=== PATIENT | male | born 1940 | race Caucasian/White ===

== ENCOUNTER → 2020-11-09 10:35 | Outpatient (BNVA) | payer MEDICARE, SELFPAY | PROVIDERS: PCP Internal Medicine; Visit Provider Urology | CPT/HCPCS: Q3014 ==

== ENCOUNTER 2022-02-05 15:06 | Outpatient (AMB) | payer MEDICARE, SELFPAY ==
--- NOTE | 2022-02-05 15:36 | MHC.OFFVIS ---
Intake Intake Visit Reasons: 1 year PSA (set) Allergies No Known Allergies Allergy (Verified 11/09/20 10:36) HPI HPI Comments History of Present Illness Details Abel HUYNH is a very pleasant male. He is a patient of Dr. Hardy. He is seen today for the following urologic conditions - lower urinary tract symptoms - elevated PSA PVR 0 Mild PSA elevation Twelve month follow-up Lower Urinary Tract Symptoms:? - nocturia 2-3x ? Current visit is for?further evaluation of, lower urinary tract symptoms, predominate obstructive symptoms.? Prior treatments include?procedure TURP 2003 ?01/18 RA.? Prostate Symptom Score?01/17 , Mild (0-8), , Bother 2.? Symptoms include?01/17 , weak stream, straining, nocturia (>2), and are progressing.? Results from testing include? cystoscopy ? 09/17 recurrent left lateral regrowth ? PSA?07/18 4.5, 09/18 2.9, 09/19 3.7, 01/21 5.1 ? Testing at next visit will include?bladder scan [facility] Medical History (Updated 11/09/20 @ 11:00 by Genaro Mike MD) Benign prostatic hyperplasia with lower urinary tract symptoms Cancer of skin of leg Nocturia Straining to void Weak urinary stream Surgical History (Updated 11/09/20 @ 10:40 by LISA Pagan) History of surgery Social History (Updated 11/09/20 @ 10:40 by LISA Pagan) Patient Tobacco Use Status: Never used Tobacco Review of Systems Const Denies chills and Denies fever(s) Card Reports no additional complaints and Denies syncope Resp Denies cough GI Denies abdominal pain and Denies heartburn Reports as per HPI and Denies change in libido Neuro Denies syncope Psych Denies change in libido Endo Denies change in libido Physical Exam Const General: cooperative, healthy appearing, comfortable and no acute distress Orientation/consciousness: patient oriented x3 HEENT Face and sinus: Yes normal facial exam Mouth: moist mucous membranes Neck Neck: Yes normal visual inspection, Yes full ROM and Yes trachea midline Chest Chest palpation & inspection: normal inspection of the chest Resp Effort & Inspection: normal respiratory effort, able to speak in complete sentences and no respiratory distress GI Inspection: Yes normal to inspection Rectal Exam - Male: Yes normal sphincter tone and Yes prostate normal Male General Exam: Yes normal external exam Penis: normal penis and circumcised Meatus: meatus normal Scrotum: scrotum normal Testes: Testes normal Back/Spine/Pelvis Cervical Spine: normal cervical lordosis Thoracic/Lumbar Spine: thoracic and lumbar spine normal to inspection Skin General skin exam: no rashes or lesions noted Neuro General: patient oriented x3, gait normal, tone normal and moves all extremities Extrem General: Yes normal to inspection and Yes capillary refill normal Office Procedures Post Void Residual Post Residual Void Post Void Residual (PVR): 0 14715-Kgft Void Residual by ultrasound Results AMB Urinalysis, Automated UA Leukoctes 0 Vielka/uL Last Edit by Luzmaria Lynn RN on 02/05/22 15:44 UA Nitrite Negative Last Edit by Luzmaria Lynn RN on 02/05/22 15:44 UA Urobilinogen 0.2 mg/dL Last Edit by Luzmaria Lynn RN on 02/05/22 15:44 UA Protein 0 mg/dL Last Edit by Luzmaria Lynn RN on 02/05/22 15:44 UA pH 6.0 Last Edit by Luzmaria Lynn RN on 02/05/22 15:44 UA Blood 10 Daron/uL Last Edit by Luzmaria Lynn RN on 02/05/22 15:44 UA Specific Valencia 1.025 Last Edit by Luzmaria Lynn RN on 02/05/22 15:44 UA Ketone Negative Last Edit by Luzmaria Lynn RN on 02/05/22 15:44 UA Bilirubin 0 mg/dL Last Edit by Luzmaria Lynn RN on 02/05/22 15:44 UA Glucose 0 mg/dL Last Edit by Luzmaria Lynn RN on 02/05/22 15:44 Results Reviewed Results Reviewed: Laboratory Last Values Urine pH (Auto) 6.0 02/05/22 15:35 Specific Valencia (Auto) 1.025 02/05/22 15:35 Urine Protein (Auto) 0 mg/dL 02/05/22 15:35 Glucose (UA)(Auto) 0 mg/dL 02/05/22 15:35 Urine Ketones (Auto) Negative 02/05/22 15:35 Urine Blood (Auto) 10 Daron/uL 02/05/22 15:35 Urine Nitrite (Auto) Negative 02/05/22 15:35 Urine Bilirubin (Auto) 0 mg/dL 02/05/22 15:35 Urine Urobilinogen (Auto) 0.2 mg/dL 02/05/22 15:35 Leukocyte Esterase (Auto) 0 Vielka/uL 02/05/22 15:35 Assessment & Plan Assessment & Plan (1) Weak urinary stream: Code(s): R39.12 - Poor urinary stream (2) Nocturia: Code(s): R35.1 - Nocturia (3) Benign prostatic hyperplasia with lower urinary tract symptoms: Code(s): N40.1 - Benign prostatic hyperplasia with lower urinary tract symptoms Plan 12 month follow-up PSA Orders: Orders Prostate Specific Antigen 12 Months N40.1 - Benign prostatic hyperplasia with lower urinary tract symptoms AMB Urinalysis Automated 02/05/22 Z13.9 - Encounter for screening, unspecified AMB Post Void Residual by ultrasound 02/05/22 N40.1 - Benign prostatic hyperplasia with lower urinary tract symptoms Patient Instructions: Imaging studies, laboratory and physical exam results were discussed and reviewed in detail. No major barriers to patient understanding were identified. An opportunity to ask questions regarding the treatment plan was provided. All questions were answered. The patient expressed understanding and agreement with the above treatment plan. The patient is aware they should contact our office by phone for worsening of their current condition or the appearance of new urologic symptoms. Compliance is encouraged with any medications and followup testing that is ordered. It is a privilege to participate in the urologic care of your patient. If you have any questions or concerns regarding treatment for the above conditions, or other urologic issues, please do not hesitate to contact me. The office telephone contact is [phone]. This note is constructed using voice recognition software. While every effort has been made to ensure accuracy cafeteria associate errors may have been included. Yours sincerely, Dr Genaro Mike MD, JUAN M [facility] - Urology Providers of Expert, Compassionate Care for the Genitourinary System Coding Level of Care Code Est Pt Level 4 (73380) Diagnoses Weak urinary stream R39.12 Nocturia R35.1 Benign prostatic hyperplasia with lower urinary tract symptoms N40.1 CPT Codes Post Residual Void - PVR CPT Code: 44713-Dzep Void Residual by ultrasound ([id number])
== END 2022-02-05 16:24 | disposition home or self-care (01) ==
LOC: HO.HUSH 15:06
PROVIDERS: PCP Internal Medicine; Visit Provider Urology
DX: N40.1 Benign prostatic hyperplasia with lower urinary tract symptoms (principal); R39.12 Poor urinary stream; R35.1 Nocturia
CPT/HCPCS: 99214

== ENCOUNTER → 2022-02-05 15:06 | Outpatient (BNVA) | payer MEDICARE, SELFPAY | PROVIDERS: PCP Internal Medicine; Visit Provider Urology | DX: N40.1 Benign prostatic hyperplasia with lower urinary tract symptoms (principal); R35.1 Nocturia; R39.12 Poor urinary stream | CPT/HCPCS: 51798; 99212 ==

== ENCOUNTER 2023-03-20 14:33 | Outpatient (AMB) | payer MEDICARE, SELFPAY ==
--- NOTE | 2023-03-20 14:33 | MHC.OFFVIS ---
Intake Intake Visit Reasons: 1yr follow up/PSA Intake Note: Patient is Present for Follow Up PSA Urology Medication: None Antibiotic Allergies: None Blood Thinners:none Allergies No Known Allergies Allergy (Verified 03/20/23 14:45) HPI HPI Comments History of Present Illness Details Abel HUYNH is a very pleasant male. He is a patient of Dr. Hardy. He is seen today for the following urologic conditions - lower urinary tract symptoms - elevated PSA PVR 0 Mild PSA elevation Staying in range for 84-year-old Mild bladder instability Minimal nocturia but has urgency and frequency Given age will try tadalafil for bladder stabilization Lower Urinary Tract Symptoms:? - nocturia 2-3x ? Current visit is for?further evaluation of, lower urinary tract symptoms, predominate obstructive symptoms.? Prior treatments include?procedure TURP 2003 ?01/18 RA.? Prostate Symptom Score?01/17 , Mild (0-8), , Bother 2.? Symptoms include?01/17 , weak stream, straining, nocturia (>2), and are progressing.? Results from testing include? cystoscopy ? 09/17 recurrent left lateral regrowth ? PSA?07/18 4.5, 09/18 2.9, 09/19 3.7, 01/21 5.1, 02/21 4.8 ? Testing at next visit will include?bladder scan [facility] Medical History (Updated 11/09/20 @ 11:00 by Genaro Mike MD) Cancer of skin of leg Nocturia Weak urinary stream Benign prostatic hyperplasia with lower urinary tract symptoms Straining to void Surgical History (Updated 11/09/20 @ 10:40 by LISA Pagan) History of surgery Social History (Updated 11/09/20 @ 10:40 by LISA Pagan) Patient Tobacco Use Status: Never used Tobacco Review of Systems Const Denies chills and Denies fever(s) Card Reports no additional complaints and Denies syncope Resp Denies cough GI Denies abdominal pain and Denies heartburn Reports as per HPI and Denies change in libido Neuro Denies syncope Psych Denies change in libido Endo Denies change in libido Physical Exam Const General: cooperative, healthy appearing, comfortable and no acute distress Orientation/consciousness: patient oriented x3 HEENT Face and sinus: Yes normal facial exam Mouth: moist mucous membranes Neck Neck: Yes normal visual inspection, Yes full ROM and Yes trachea midline Chest Chest palpation & inspection: normal inspection of the chest Resp Effort & Inspection: normal respiratory effort, able to speak in complete sentences and no respiratory distress GI Inspection: Yes normal to inspection Back/Spine/Pelvis Cervical Spine: normal cervical lordosis Thoracic/Lumbar Spine: thoracic and lumbar spine normal to inspection Skin General skin exam: no rashes or lesions noted Neuro General: patient oriented x3, gait normal, tone normal and moves all extremities Extrem General: Yes normal to inspection and Yes capillary refill normal Assessment & Plan Assessment & Plan (1) Nocturia: Code(s): R35.1 - Nocturia (2) Benign prostatic hyperplasia with lower urinary tract symptoms: Code(s): N40.1 - Benign prostatic hyperplasia with lower urinary tract symptoms Plan Three-month follow-up tele Medications: New tadalafil 5 mg PO DAILY 90 tabs 0RF sexual activity 90 days N40.1 - Benign prostatic hyperplasia with lower urinary tract symptoms Patient Instructions: Imaging studies, laboratory and physical exam results were discussed and reviewed in detail. No major barriers to patient understanding were identified. An opportunity to ask questions regarding the treatment plan was provided. All questions were answered. The patient expressed understanding and agreement with the above treatment plan. The patient is aware they should contact our office by phone for worsening of their current condition or the appearance of new urologic symptoms. Compliance is encouraged with any medications and followup testing that is ordered. It is a privilege to participate in the urologic care of your patient. If you have any questions or concerns regarding treatment for the above conditions, or other urologic issues, please do not hesitate to contact me. The office telephone contact is [phone]. This note is constructed using voice recognition software. While every effort has been made to ensure accuracy last ironer errors may have been included. Yours sincerely, Dr Genaro Mike MD, JUAN M [facility] - Urology Providers of Expert, Compassionate Care for the Genitourinary System Coding Level of Care Code Est Pt Level 4 (13704) Diagnoses Nocturia R35.1 Benign prostatic hyperplasia with lower urinary tract symptoms N40.1
== END 2023-03-20 14:55 | disposition home or self-care (01) ==
LOC: HO.HUSH 14:33
PROVIDERS: PCP Internal Medicine; Visit Provider Urology
DX: N40.1 Benign prostatic hyperplasia with lower urinary tract symptoms (principal); R35.1 Nocturia
CPT/HCPCS: 99214

== ENCOUNTER → 2023-03-20 14:33 | Outpatient (BNVA) | payer MEDICARE, SELFPAY | PROVIDERS: PCP Internal Medicine; Visit Provider Urology | DX: N40.1 Benign prostatic hyperplasia with lower urinary tract symptoms (principal); R35.1 Nocturia | CPT/HCPCS: 99212 ==

== ENCOUNTER 2023-06-23 09:51 | Outpatient (AMB) | payer MEDICARE, SELFPAY ==
--- NOTE | 2023-06-23 09:52 | A.OFFVIS_ITS ---
Intake Visit Reasons: Med Review(Tadalafil) Intake Note: Patient is Present for Telephone Follow Up Urology Med: Tadalafil Antibiotic Allergy:None Blood Thinner: None Allergies No Known Allergies Allergy (Verified 06/23/23 09:53) Medication List - Last Reconciled 06/23/23 by Genaro Mike MD alendronate 70 mg PO QWEEK gabapentin 100 mg PO BEDTIME levothyroxine 75 mcg PO DAILY rizatriptan 0 mg PO salicylic acid 17% (Compound W) 1 appl topical DAILY HPI Comments Details: Abel HUYNH is a very pleasant male. He is a patient of Dr. Hardy. He is seen today for the following urologic conditions - lower urinary tract symptoms - elevated PSA Telemedicine Evaluation 15 min Consultation 2C2P Murray Video attempted Did not tolerate tadalafil - felt rectal bulge with thrombosed hemorrhoid - had blood nose as well Stopped tadalafil Mild bladder instability Minimal nocturia but has urgency and frequency Twelve month follow-up PSA Lower Urinary Tract Symptoms:? - nocturia 2-3x ? Current visit is for?further evaluation of, lower urinary tract symptoms, predominate obstructive symptoms.? Prior treatments include?procedure TURP 2003 ?01/18 RA.? Prostate Symptom Score?01/17 , Mild (0-8), , Bother 2.? Symptoms include?01/17 , weak stream, straining, nocturia (>2), and are progressing.? Results from testing include? cystoscopy ? 09/17 recurrent left lateral regrowth ? PSA?07/18 4.5, 09/18 2.9, 09/19 3.7, 01/21 5.1, 02/21 4.8 ? Testing at next visit will include?bladder scan [facility] Medical History Cancer of skin of leg Nocturia Weak urinary stream Benign prostatic hyperplasia with lower urinary tract symptoms Straining to void Surgical History History of surgery Social History Patient Tobacco Use Status: Never used Tobacco Review of Systems Const All systems reviewed & are unremarkable except as noted in HPI and below Reports no additional complaints Resp Reports no additional complaints GI Reports no additional complaints Reports as per HPI Musc Reports no additional complaints Physical Exam Telemedicine evaluation Appropriate responses Regular breathing rate and rhythm HEENT Head: Yes normal to inspection Ears: hearing grossly normal bilaterally Eyes General: appearance normal, both eyes and all related structures Neck Neck: Yes normal visual inspection Chest Chest palpation & inspection: normal inspection of the chest Resp Effort & Inspection: normal respiratory effort and able to speak in complete sentences Telehealth Telehealth Location of provider rendering services: practice address Location of patient: address on file Patient Identification confirmed using: Name, : Yes Telehealth method: voice only Patient verbally consented to treatment: Yes Patient verbally consented to billing insurance company: Yes Patient informed of any privacy concerns related to visit: Yes Assessment & Plan Assessment & Plan (1) Bladder instability: Code(s): N32.89 - Other specified disorders of bladder Category: Medical (2) Nocturia: Code(s): R35.1 - Nocturia Category: Medical (3) Benign prostatic hyperplasia with lower urinary tract symptoms: Code(s): N40.1 - Benign prostatic hyperplasia with lower urinary tract symptoms Category: Medical Plan Twelve month follow-up Orders: Orders Prostate Specific Antigen 364 Days N40.1 - Benign prostatic hyperplasia with lower urinary tract symptoms Medications: Discontinued tadalafil Discontinued Reason: Patient Completed Course 5 mg PO DAILY 90 days 90 tabs 0RF sexual activity N40.1 - Benign prostatic hyperplasia with lower urinary tract symptoms Patient Instructions: Imaging studies, laboratory and physical exam results were discussed and reviewed in detail. No major barriers to patient understanding were identified. An opportunity to ask questions regarding the treatment plan was provided. All questions were answered. The patient expressed understanding and agreement with the above treatment plan. The patient is aware they should contact our office by phone for worsening of their current condition or the appearance of new urologic symptoms. Compliance is encouraged with any medications and followup testing that is ordered. It is a privilege to participate in the urologic care of your patient. If you have any questions or concerns regarding treatment for the above conditions, or other urologic issues, please do not hesitate to contact me. The office telephone contact is [phone]. This note is constructed using voice recognition software. While every effort has been made to ensure accuracy power lineman technician errors may have been included. Yours sincerely, Dr Genaro Mike MD, JUAN M [facility] - Urology Providers of Expert, Compassionate Care for the Genitourinary System
== END 2023-06-23 10:38 | disposition home or self-care (01) ==
LOC: HO.HUSH 09:51
PROVIDERS: PCP Internal Medicine; Visit Provider Urology
DX: N32.89 Other specified disorders of bladder (principal); R35.1 Nocturia; N40.1 Benign prostatic hyperplasia with lower urinary tract symptoms
CPT/HCPCS: 99442

== ENCOUNTER → 2023-06-23 09:51 | Outpatient (BNVA) | payer MEDICARE, SELFPAY | PROVIDERS: PCP Internal Medicine; Visit Provider Urology ==

== ENCOUNTER 2024-07-26 09:10 | Outpatient (AMB) | payer MEDICARE, SELFPAY ==
--- NOTE | 2024-07-26 09:14 | A.OFFVIS_ITS ---
Intake Visit Reasons: 1y/PSA Intake Note: Pt presents to the office today for a 1 year follow up/PSA. PVR:6ml Allergies No Known Allergies Allergy (Verified 07/26/24 09:14) HPI Comments Details: Abel HUYNH is a very pleasant male. He is a patient of Dr. Hardy. He is seen today for the following urologic conditions - lower urinary tract symptoms - elevated PSA Twelve month follow-up Previously did not tolerate tadalafil - felt rectal bulge with thrombosed hemorrhoid - had blood nose as well Mild bladder instability Minimal nocturia but has urgency and frequency Twelve month follow-up PSA - is staying with in overall range Discussed adequacy of urination Lower Urinary Tract Symptoms:? - nocturia 2-3x ? Current visit is for?further evaluation of, lower urinary tract symptoms, predominate obstructive symptoms.? Prior treatments include?procedure TURP 2003 ?01/18 RA.? Prostate Symptom Score?01/17 , Mild (0-8), , Bother 2.? Symptoms include?01/17 , weak stream, straining, nocturia (>2), and are progressing.? Results from testing include? cystoscopy ? 09/17 recurrent left lateral regrowth ? PSA?07/18 4.5, 09/18 2.9, 09/19 3.7, 01/21 5.1, 02/21 4.8, 05/24 4.9 ? Testing at next visit will include?bladder scan [facility] Medical History Cancer of skin of leg Nocturia Weak urinary stream Benign prostatic hyperplasia with lower urinary tract symptoms Straining to void Surgical History History of surgery Social History Patient Tobacco Use Status: Never used Tobacco Review of Systems Const Denies chills and Denies fever(s) Card Reports no additional complaints and Denies syncope Resp Denies cough GI Denies abdominal pain and Denies heartburn Reports as per HPI and Denies change in libido Neuro Denies syncope Psych Denies change in libido Endo Denies change in libido Physical Exam Const General: cooperative, healthy appearing, comfortable and no acute distress Orientation/consciousness: patient oriented x3 HEENT Face and sinus: Yes normal facial exam Mouth: moist mucous membranes Neck Neck: Yes normal visual inspection, Yes full ROM and Yes trachea midline Chest Chest palpation & inspection: normal inspection of the chest Resp Effort & Inspection: normal respiratory effort, able to speak in complete sentences and no respiratory distress GI Inspection: Yes normal to inspection Back/Spine/Pelvis Cervical Spine: normal cervical lordosis Thoracic/Lumbar Spine: thoracic and lumbar spine normal to inspection Skin General skin exam: no rashes or lesions noted Neuro General: patient oriented x3, gait normal, tone normal and moves all extremities Extrem General: Yes normal to inspection and Yes capillary refill normal Office Procedures Post Void Residual Post Residual Void Post Void Residual (PVR): 6 [id number] Void Residual by ultrasound Assessment & Plan Assessment & Plan (1) Benign prostatic hyperplasia with lower urinary tract symptoms: Code(s): N40.1 - Benign prostatic hyperplasia with lower urinary tract symptoms Category: Medical (2) Nocturia: Code(s): R35.1 - Nocturia Category: Medical (3) Bladder instability: Code(s): N32.89 - Other specified disorders of bladder Category: Medical Plan Stable symptoms 12 month follow-up Orders: Orders AMB Post Void Residual by ultrasound Today N40.1 - Benign prostatic hyperplasia with lower urinary tract symptoms Patient Instructions: This note is constructed using voice recognition software. While every effort has been made to ensure accuracy control clerk auditing errors may have been included. Imaging studies, laboratory and physical exam results were discussed and reviewed in detail. No major barriers to patient understanding were identified. An opportunity to ask questions regarding the treatment plan was provided. All questions were answered. The patient expressed understanding and agreement with the above treatment plan. The patient is aware they should contact our office by phone for worsening of their current condition or the appearance of new urologic symptoms. Compliance is encouraged with any medications and followup testing that is ordered. It is a privilege to participate in the urologic care of your patient. If you have any questions or concerns regarding treatment for the above conditions, or other urologic issues, please do not hesitate to contact me. The office telephone contact is [phone]. Sincerely, Dr Genaro Mike MD, JUAN M [facility] - Urology Compassionate Specialist Care for the Genitourinary System Coding Level of Care Code Est Pt Level 4 (51227) Diagnoses Benign prostatic hyperplasia with lower urinary tract symptoms N40.1 Nocturia R35.1 Bladder instability N32.89 CPT Codes Post Residual Void - PVR CPT Code: 50304-Zwrj Void Residual by ultrasound ([id number])
--- OUTSIDE RECORDS SUMMARY | 2024-07-26 09:41 | XMS_ITS | Data Portability ---
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 On awakening he experienced double vision, a spinning or moving feeling, a lightheadedness feeling of anxiety and unsettledness. No shortness of breath or chest pain. He has a habit of checking his pulse as he has a known history of PVCs and noted his heart was skipping every other beat for at least 5 minutes. There may have been other irregularities that he cannot describe that he noted as well. This was accompanied by nausea and lightheadedness. The pulse seemed to regularize after 5 minutes and his symptoms slowly resolved in 30 minutes. 4 hours later, after morning activities and chores, feeling tired in his usual midday manner, stopped to rest. While reclining in chair the symptoms returned. It did not last as long but the pulse was irregular skipping frequent beats. It was accompanied by nausea. No chest pain or shortness of breath. Today he has been moving more carefully, slowly and has not experienced any symptoms. Patient had a atypical chest pain workup 2021 described as normal. Details not available. As noted he has a history of PVCs. Non-smoker, no alcohol. He does have a history of migraines but has not taken his tryptophan medicine since Thursday. Only other medicines include Levoxyl. Physical exam: Appropriately aged male, moving easily around the room. 119/77. Pulse 72 and regular in the office. O2 sat 96% room air. Lungs are clear bilaterally. Cardiac is regular without murmur. Extremities without edema. Grossly normal neurologically. Impression and plan: Patient report of irregular heartbeat associated with his symptom complex of double vision, dizziness, anxiety weakness and lightheadedness raise question of arrhythmias. He is known to have PVCs but these should be asymptomatic. While labyrinthitis is a possibility it would not give irregular heartbeats. It occurred twice yesterday, today asymptomatic. Cannot rule out an atypical [place] yesterday versus symptomatic arrhythmias in this patient with no prior cardiac/ischemic history. After discussion with and patient, she will drive him to [facility] emergency room for evaluation and I expect overnight cardiac monitoring is indicated. Further decision making based on those observations. They left to proceed to the emergency room in stable medical condition. No EKG in office was required in this decision making. An expect form as well as copy of this note will be faxed to JAQUELINE may Not available 08/03/2023 11:43:13 09/09/2023 09/09/2023 We completed you r Medicare Wellness exam today. This was an opportunity to assess your overall well being including your ability to care for yourself, your mobility, memory, mental health, as well as your safety. With advancing age, it is important to assign someone in your life as your Health Care Proxy (HCP). This person should know what is important to you and what your wishes are for medical procedures if you cannot communicate your wishes yourself (severe illness, unconsciousness). Influenza Vaccine : Flu shot yearly. Tetanus Vaccine : Every 10 years. The following vaccines are available from your pharmacy: Pneumonia Vaccine : PCV20: once after age 65. Shingles Vaccine : 2 shots after age 50. Covid Vaccine : Make sure you have received the most up to date covid vaccine. 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 all issues discussed, qll q;s answered 12/23/[address] Lauren Sosa in [place] [facility] 08/29/2022 all new and usual complaints were addressed, none of which need followup * 12/20/2021 chronic anxiety related lACW pain nervous anxiety at 3PM agrees to trial clonazepam 0.25 bid tx rational and se'd discussed rto 2 weeks healthy active 81 year old 06/2021 atypical non cardiac CP , anxiety per cardiology pt accepting AK;s frozen derm found Basal Cell CA (04/2021) 2021 colo adenoma fragments, aged out exercises daily Mandy following prior- i want to know if this is significant had palpitations age33- received med and it stopped 01/31/2020 discuss sleep study, neuropsych testing and life alert screening that showed osteoporosis fatigued easily feels getting worse when lying on left side has some pain and thinks its his heart [email or web address] Not available 09/11/2023 18:24:08 03/17/2024 03/17/2024 Assessment: Patient presents to initial physical therapy evaluation with signs and symptoms consistent with: improving subacute non-specific LBP As demonstrated by functional testing, patient is NOT at elevated risk of falls. Bose deficits/impairmen ts: trunk ROM, lifting ability, hip ROM Functional limitations: bending/lifting, full participation in recreational activities Response to treatment: patient demonstrates safe and appropriate performance of initial home exercise program. Patient tolerated all interventions well and denied adverse events upon departure. Patient would benefit from skilled PT intervention in order to address the aforementioned impairments, maximize patient function, and achieve patient specific goals. Patients' prognosis for improvement with PT care is GOOD. Goal Progress Comment Improve rating on Patient-Specific Functional Scale activities by 2 points (MCID). new Independent in comprehensive HEP. new new new Additional goals to be added as appropriate. Plan: Patient will benefit from 10 weeks of skilled physical therapy at a frequency of 1session(s) per week. Treatment to include the following as indicated: 67898 Therapeutic Exercise, 39352 Neuromuscular Re-education, 77512 Gait Training, 20903 Manual Therapy, 14717 Therapeutic Activity, and 41335 Self-care and ADL Training Next visit: review home program and progress as appropriate [email or web address] Not available 03/17/2024 12:43:41 03/22/2024 03/22/2024 Assessment: improving subacute non-specific LBP Positive reports from patient and no new concerns today. Patient is appropriate to continue exercising independently. Pt to return with any worsening of symptoms. Bose deficits/impairmen ts: trunk ROM, lifting ability, hip ROM Functional limitations: bending/lifting, full participation in recreational activities Response to treatment: patient demonstrates safe and appropriate performance of initial home exercise program. Patient tolerated all interventions well and denied adverse events upon departure. Patient would benefit from skilled PT intervention in order to address the aforementioned impairments, maximize patient function, and achieve patient specific goals. Plan: Patient will benefit from 10 weeks of skilled physical therapy at a frequency of 1session(s) per week. Treatment to include the following as indicated: 55049 Therapeutic Exercise, 86316 Neuromuscular Re-education, 63764 Gait Training, 92097 Manual Therapy, 36308 Therapeutic Activity, and 33891 Self-care and ADL Training Next visit: further visits PRN [email or web address] Not available 03/22/2024 12:29:51 Plan of Treatment Reminders Order Date Submit Date Provider Last Modified By Organization Details Last Modified Time Details Appointments LAB Follow-Up 2024 08:00A [facility] Not available Not available Not available Wellness Visit 30 2024 11:00A M Genaro Hardy MD Not available Not available Not available Lab CBC 2023 024 [facility], [address] [place] [address], [id number], 03/01/2024 11:59:25 alkaline phosphata se, serum or plasma 2023 024 [facility], [address] [place] [address], [address], 03/01/2024 14:01:17 PSA, serum or plasma 2023 024 [facility], [address] [place] [address], [address], 03/01/2024 14:10:08 BMP, serum or plasma 2023 024 [facility], [address] [place] [address], [address], 03/01/2024 14:01:15 Referral physical therapist referral 2023 024 [facility] ([facility]), [address] [place], [address], 03/03/2024 10:03:37 Procedures None recorded. Surgeries None recorded. Imaging XR, lumbar spine 2023 024 [facility] ([facility]), [address] [place], [address], 03/01/2024 09:08:40 XR, ribs, unilatera l - left sided posterior rib tendernes s 2023 024 [facility] ([facility]), [address] [place], [address], 03/01/2024 09:04:30 Medication Orders None recorded. Patient TargetsNo targets recorded. Patient Instructions Encounter Date Encounter Id Patient Instructions Last Modified By Organization Details Last Modified Time 03/17/2024 [id number] Patient instruct ed to inform attending physical therapist of any apprehension, pain, discomfort, or change in symptoms throughout the course of treatment. Patient verbalized understanding and agreed to comply. [email or web address] Not available 03/17/2024 10:34:23 03/22/2024 [id number] Patient instruct ed to inform attending physical therapist of any apprehension, pain, discomfort, or change in symptoms throughout the course of treatment. Patient verbalized understanding and agreed to comply. [email or web address] Not available 03/22/2024 11:33:36 Reason for Referral Physical Therapist Referral for Low back pain Referring Physician: Genaro Hardy, Family Medicine, Encounter Date: 02/29/2024 Results Created Date Observation Date Name Description Value Unit Range Abnormal Flag Note LastModifiedBy Organization Detail LastModifiedTime 08/12/19 24 08/12/2023 TSH TSH 3.75 uIU/m L 0.50-6 .00 The [employer]inol o[employer] and Ameri can Thyro id Assoc iatio n recom mend goal TSH value s betwe en 0.4-4 .0 mIU/m L. Not Available [address], [address], 08/12/2023 13:58:27 03/01/20 24 03/01/2024 CBC WBC 6.74 K/? ? ?L 4.23-9 .07 Not Available [address], [address], 03/01/2024 11:59:25 03/01/20 24 03/01/2024 CBC RBC 4.60 M/? ? ?L 4.63-6 .08 low Not Available [address], [address], 03/01/2024 11:59:25 03/01/20 24 03/01/2024 CBC HGB 14.3 g/dL 13.7-1 7.5 Not Available [address], [address], 03/01/2024 11:59:25 03/01/20 24 03/01/2024 CBC HCT 44.5 % 40.1-5 1.0 Not Available [address], [address], 03/01/2024 11:59:25 03/01/20 24 03/01/2024 CBC MCV 96.7 fL 79.0-9 2.2 high Not Available [address], [address], 03/01/2024 11:59:25 03/01/20 24 03/01/2024 CBC MCH 31.1 pg 25.7-3 2.2 Not Available [address], [address], 03/01/2024 11:59:25 03/01/20 24 03/01/2024 CBC MCHC 32.1 g/dL 32.3-3 6.5 low Not Available [address], [address], 03/01/2024 11:59:25 03/01/20 24 03/01/2024 CBC plt 248 K/? ? ?L 163-33 7 Not Available [address], [address], 03/01/2024 11:59:25 03/01/20 24 03/01/2024 CBC MPV 9.5 fL 9.4-12 .4 Not Available [address], [address], 03/01/2024 11:59:25 03/01/20 24 03/01/2024 CBC neut% 62.0 % 34.0-6 7.9 Not Available [address], [address], 03/01/2024 11:59:25 03/01/20 24 03/01/2024 CBC neut# 4.18 1.78-5 .38 Not Available [address], [address], 03/01/2024 11:59:25 03/01/20 24 03/01/2024 CBC lymph % 22.3 % 21.8-5 3.1 Not Available [address], [address], 03/01/2024 11:59:25 03/01/20 24 03/01/2024 CBC lymph # 1.50 K/? ? ?L 1.32-3 .57 Not Available [address], [address], 03/01/2024 11:59:25 03/01/20 24 03/01/2024 CBC mono% 10.2 % 5.3-12 .2 Not Available [address], [address], 03/01/2024 11:59:25 03/01/20 24 03/01/2024 CBC mono# 0.69 0.30-0 .82 Not Available [address], [address], 03/01/2024 11:59:25 03/01/20 24 03/01/2024 CBC eo% 4.2 % 0.8-7. 0 Not Available [address], [address], 03/01/2024 11:59:25 03/01/20 24 03/01/2024 CBC eo# 0.28 0.04-0 .54 Not Available [address], [address], 03/01/2024 11:59:25 03/01/20 24 03/01/2024 CBC baso% 1.2 % 0.2-1. 2 Not Available [address], [address], 03/01/2024 11:59:25 03/01/20 24 03/01/2024 CBC baso# 0.08 0.00-0 .08 Not Available [address], [address], 03/01/2024 11:59:25 03/01/20 24 03/01/2024 CBC RDW-CV 12.6 % 11.6-1 4.4 Not Available [address], [address], 03/01/2024 11:59:25 03/01/20 24 03/01/2024 CBC Ig% 0.100 % 0.000- 1.500 Ig % >0.5 Indic ates possi ble Left Shift Not Available [address], [address], 03/01/2024 11:59:25 03/01/20 24 03/01/2024 CBC Ig# 0.010 0.000- 0.093 Not Available [address], [address], 03/01/2024 11:59:25 03/01/20 24 03/01/2024 CBC NRBC% 0.0 % 0.0-0. 2 Not Available [address], [address], 03/01/2024 11:59:25 03/01/20 24 03/01/2024 CBC NRBC# 0.000 0.000- 0.012 Not Available [address], [address], 03/01/2024 11:59:25 03/01/20 24 03/01/2024 BASIC METAB OLIC PANEL glucose 99 mg/dL 70-100 Not Available [address], [address], 03/01/2024 14:01:15 03/01/20 24 03/01/2024 BASIC METAB OLIC PANEL BUN 17 mg/dL 7-18 Not Available [address], [address], 03/01/2024 14:01:15 03/01/20 24 03/01/2024 BASIC METAB OLIC PANEL creatinine 1.1 mg/dL 0.8-1. 3 Not Available [address], [address], 03/01/2024 14:01:15 03/01/20 24 03/01/2024 BASIC METAB OLIC PANEL B/C 15.5 ratio Not Available [address], [address], 03/01/2024 14:01:15 03/01/20 24 03/01/2024 BASIC METAB OLIC PANEL GFR >=60ML /MIN mL/mi n normal >=60m L/min - Jacey l or midly reduc ed <60mL /min- Decre ased kidne y funct ion <15mL /min - Kidne y failu re [facility] calcu lates estim ated Glome rular Filtr ation Rate (eGFR ) using the Chron ic Kidne y Disea se Epide miolo gy Colla borat ion (CKD- EPI) Equat ion (Jose tovar et. al 2020) as recom robyn d by the Aron love . eGFR is based on age, serum creat inine , and sex. CKD-E PI does not calcu late eGFR by race, does not apply to child nataliia (age <18 years ), and shoul d not be used in pregn hollie. Not Available [address], [address], 03/01/2024 14:01:15 03/01/20 24 03/01/2024 BASIC METAB OLIC PANEL sodium 143 mmol/ L 136-14 5 Not Available [address], [address], 03/01/2024 14:01:15 03/01/20 24 03/01/2024 BASIC METAB OLIC PANEL potassium 4.3 mmol/ L 3.5-5. 1 Not Available [address], [address], 03/01/2024 14:01:15 03/01/20 24 03/01/2024 BASIC METAB OLIC PANEL chloride 103 mmol/ L 96-107 Not Available [address], [address], 03/01/2024 14:01:15 03/01/20 24 03/01/2024 BASIC METAB OLIC PANEL anion gap 8.0 5.0-15 .0 Not Available [address], [address], 03/01/2024 14:01:15 03/01/20 24 03/01/2024 BASIC METAB OLIC PANEL CO2 32 mmol/ L 21-32 Not Available [address], [address], 03/01/2024 14:01:15 03/01/20 24 03/01/2024 BASIC METAB OLIC PANEL calcium 9.1 mg/dL 8.5-10 .3 Not Available [address], [address], 03/01/2024 14:01:15 03/01/20 24 03/01/2024 ALKAL INE PHOSP HATAS E alk. phos. 80 U/L 50-136 Not Available [address], [address], 03/01/2024 14:01:17 03/01/20 24 03/01/2024 PSA PSA 5.53 NG/mL 0.00-4 .00 high Not Available [address], [address], 03/01/2024 14:10:08 05/17/19 25 05/17/2024 PSA PSA 4.92 NG/mL 0.00-4 .00 high Not Available [address], [address], 05/17/2024 15:00:18 03/01/20 24 02/29/2024 XR, ribs, unila teral CLINIC AL HISTOR Y: Pain. TECHNI QUE: At least 3 views of the left ribs are obtain ed. COMPAR MONICA: None. FINDIN GS: No fractu re or soft tissue abnorm ality of the ribs is seen. The lungs and pleura l spaces are clear. IMPRES CHANDA: No abnorm ality left ribs.. Kaylen krishnan Physic dionna: Bjorn King [facility] ([facility]) [address], [place], [address], 03/02/2024 11:09:45 03/01/20 24 02/29/2024 XR, lumba r spine CLINIC AL HISTOR Y: Low back pain. TECHNI QUE: AP, latera l and latera l spot views of the lumbar spine obtain ed. COMPAR MONICA: None. FINDIN GS: Verteb ral body height is mainta ined. There is some mild scolio sis convex right. . There is disc space narrow ing at all lumbar levels with rather extens essie endpla te spurri ng that is most promin ent at L3-4 and L4-5. There is a minima l retrol isthes is of L2 on L3 likely degene rative .. There is no compre ssion fractu re. The sacroi liac joints are unrema rkable . IMPRES CHANDA: 1. 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 Kaylen krishnan Physic dionna: Bjorn King [facility] ([facility]) [address] , [place], [address], 03/02/2024 11:09:45 Result Notes None recorded. 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 523624208 Active 2018 Not Available [facility] 3 09:57:13 Anxiety 98664773 Active 2020 Not Available [facility] 3 09:57:14 Osteopen ia 742556735 Active 2020 Not Available [facility] 3 09:57:13 Adenomat ous polyp of colon 872563081 Active 2021 Not Available [facility] 3 09:57:13 Basal cell carcinom a of skin 361041062 Active 2021 Not Available [facility] 3 09:57:13 Headache 52990294 Completed 200511/01/2014 Cristian Amaya MD [address] [place] [address], [address] , [facility] 14:17:53 Mixed hyperlip idemia 495119799 Completed 200805/13/2017 Cristian Amaya MD [address] [place] [address], [address] , [facility] 19:14:52 Migraine without aura 54545982 Completed 200410/28/2015 Cristian Amaya MD [address] [place] [address], [address] , [facility] 10:09:30 Cellulit is and abscess of hand excludin g digits Completed 200501/19/2013 Cristian Amaya MD [address] [place] [address], [address] , [facility] 14:17:53 Prostate specific antigen above referenc e range 147779353 Completed 200705/14/2017 Cristian Amaya MD [address] [place] [address], [address] , [facility] 15:01:03 Migraine with aura 7836684 Completed 200011/01/2014 Cristian Amaya MD [address] [place] [address], [address] , [facility] 14:17:52 Dermatit is caused by ingested food 196140928 Completed 200511/01/2014 Cristian Amaya MD [address] [place] [address], [address] , [facility] 14:17:53 Acute pharyngi tis 896998527 Completed 200501/19/2013 Cristian Amaya MD [address] [place] [address], [address] , [facility] 14:17:52 Urinary tract obstruct ion 7386049 Completed 200310/28/2015 Cristian Amaya MD [address] [place] [address], [address] , [facility] 10:09:36 Pain of hip region 17457261 Completed 200301/19/2013 Cristian Amaya MD [address] [place] [address], [address] , [facility] 14:17:53 Neck pain 44836053 Completed 200301/19/2013 Cristian Amaya MD [address] [place] [address], [address] , [facility] 14:17:53 Disorder of prostate 99685855 Completed 200411/01/2014 Cristian Amaya MD [address] [place] [address], [address] , [facility] 14:17:53 Pure hypercho lesterol emia 497940798 Completed 200211/01/2014 Cristian Amaya MD [address] [place] [address], [address] , [facility] 14:17:52 Common cold 03650767 Completed 200501/19/2013 Cristian Amaya MD [address] [place] [address], [address] , [facility] 14:17:52 Inguinal hernia 755653415 Active 2000 Not Available [facility] 3 09:57:13 Family history of malignan t neoplasm of gastroin testinal tract 397996318 Active Not Available [facility] 3 09:57:13 Hearing loss 00674688 Active bilatera l Not Available [facility] 3 09:57:13 Low back pain 594048875 Completed 200511/01/2014 Cristian Amaya MD [address] [place] [address], [address] , [facility] 14:17:53 Migraine 65408337 Active Not Available [facility] 3 09:57:13 Hypothyr oidism 05043231 Completed 200011/01/2014 Cristian Amaya MD [address] [place] [address], [address] , [facility] 14:17:52 Streptoc occal sore throat 72696421 Completed 200401/19/2013 Cristian Amaya MD [address] [place] [address], [address] , [facility] 14:17:52 Bronchit is 75263300 Completed 01/19/2013 Cristian Amaya MD [address] [place] [address], [address] , [facility] 14:17:52 Benign prostati c hyperpla barak 890307351 Completed 200011/01/2014 Cristian Amaya MD [address] [place] [address], [address] , [facility] 14:17:53 Malaise and fatigue 252151322 Completed 200001/19/2013 Cristian Amaya MD [address] [place], [address] , [facility] 14:17:53 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 Please review this document and add these problems to the patient's chart manually as needed. Problem Notes None recorded. Procedures Surgical History Date Name Laterality Status Provider Name and Address Organization Details Recorded Time 03/22/19 25 94456: Therapeutic Exercise completed TU FIELD PT, DPT [address] [place] [address], [phone], [facility] 03/22/2024 12:29:10 03/22/19 25 Treatment and Advice completed TU FIELD PT, DPT [address] [place], [address], [facility] 03/22/2024 11:33:36 03/17/19 25 Smoking Cessation Counselling completed TU FIELD PT, DPT [address] [place], [address], [facility] 03/17/2024 10:33:35 03/17/19 25 Physical Activity Counselling completed TU FIELD PT, DPT [address] [place] [address], [phone], [facility] 03/17/2024 10:33:35 03/17/19 25 38127: PT Eval Low Complexity completed TU FIELD PT, DPT [address] [place], [address], [facility] 03/17/2024 10:33:35 03/17/19 25 Treatment and Advice completed TU FIELD PT, DPT [address] [place], [address], [facility] 03/17/2024 10:57:12 09/09/19 24 Medicare Wellness Visit completed Verónica [facility] 09/09/2023 10:06:50 05/06/19 24 Epistaxis Management completed JAYLIN Nava [address] [place], [address], [facility] 05/06/2023 16:42:43 08/30/19 23 Medicare Wellness Visit completed Verónica [facility] 08/29/2022 15:30:43 07/25/19 22 Medicare Wellness Visit completed Verónica [facility] 07/24/2021 14:40:32 07/25/19 22 Alcohol use screening completed Verónica [facility] 07/24/2021 14:40:32 07/25/19 22 Cardiovascular disease risk reduction counseling completed Verónica [facility] 07/24/2021 14:40:32 12/06/19 21 Wart completed Melissa Ramirez, DPM [address] [place], [address], [facility] 12/05/2020 11:52:50 10/31/19 21 Wart completed Melissa Ramirez, DPM [address] [place], [address], [facility] 10/30/2020 09:35:49 08/10/19 21 Wart completed Melissa Ramirez, DPM [address] [place], [address], [facility] 08/09/2020 09:27:26 06/08/19 21 Wart completed Melissa Ramirez, DPM [address] [place], [phone], [facility] [place] 14:57:13 01/31/20 20 Medicare Wellness Visit completed Verónica Hearn [facility] 01/31/2020 11:15:40 01/31/20 20 prevention-cardiov ascular risk reduction counseling completed Verónica [facility] 01/31/2020 11:15:40 01/31/20 20 prevention-annual alcohol misuse screening completed Verónica [facility] 01/31/2020 11:15:40 01/31/20 20 Telephonic Visit completed Verónica [facility] 01/31/2020 11:17:32 05/02/19 20 Cataract Surgery completed Tosha Quintanilla [facility] 08/29/2020 16:44:45 05/15/19 18 Medicare Wellness Visit completed Debi Rosales [facility] 05/14/2017 14:16:35 01/17/20 16 Medicare Wellness Visit completed Debi Rosales [facility] 01/17/2016 14:28:46 10/05/19 16 Colonoscopy completed Cristian Amaya MD [address] [place] [address], [id number], [facility] [place]10[place]2015 16:44:44 11/10/19 15 Medicare Wellness Visit completed Tamra Sales [facility] 11/09/2014 08:46:59 10/22/19 14 Medicare Wellness Visit completed Lucy Spaulding [facility] 10/21/2013 16:26:44 10/14/19 13 Medicare Wellness Visit completed Mary Ann Light [facility] 10/13/2012 08:56:42 10/09/19 12 Medicare Wellness Visit completed Lucy Spaulding [facility] 10/09/2011 09:48:12 08/01/19 11 Colonoscopy completed Cristian Amaya MD [address] [place] [address], [phone], [facility] 10/13/2012 09:10:01 07/23/19 11 Medicare Annual Wellness Visit completed Sharon Nicole [facility] 07/22/2010 08:40:15 07/23/19 11 Medicare Risk for Falls Screen completed Sharon Nicole [facility] 07/22/2010 08:40:15 07/23/19 11 Advanced Care Planning completed Sharon Nicole [facility] 07/22/2010 08:40:15 05/08/19 05 Prostate Surgery completed Tosha Quintanilla [facility] 08/29/2020 16:43:35 Imaging Results None recorded. Procedure Notes None recorded. Medical Equipment None Reported. Allergies Allergen ID Allergen Name Allergen Category Reaction Reaction Severity Criticality Documentation Date Start Date Code Code System Note Provider Name and Address Organization Details Recorded Time acetamino phen / chlorphen iramine / dextromet horphan / pseudoeph edrine medicatio n Not available Not available Not available 04/02/2009 67331 2 RxNorm Not Available [facility] 1 06:05:20 [id number] tadalafil medicatio n Not available Not available Not available 08/03/2023 [id number] 3 RxNorm Nora Barker MA [facility] 4 10:51:15 Medications Name Sig Start Date Stop Date Status Note LastModified by Organization Details LastModified Time amoxicill in 500 mg capsule 10/07 completed Not Available Not Available Not Available doxycycli ne hyclate 100 mg capsule 1 PO BID X 7 D 01/16 completed Not Available Not Available Not Available cefpodoxi me 200 mg tablet TAKE 1 TABLET BY MOUTH EVERY 12 HOURS FOR 7 DAYS active Not Available Not Available No t Available azithromy mary 250 mg tablet TAKE 2 TABLETS BY MOUTH TODAY, THEN TAKE 1 TABLET DAILY FOR 4 DAYS 08/29 completed Not Available Not Available Not Available ofloxacin 0.3 % eye drops 01/30 completed Not Available Not Available Not Available benzonata te 200 mg capsule Take 1 capsule 3 times a day by oral route as needed for 10 days. 2015 active Not Available Not Available Not Avai lable hydrocodo ne 5 mg-acetam inophen 325 mg tablet active Not Available Not Available Not Available alendrona te 70 mg tablet TAKE 1 TABLET BY MOUTH EVERY WEEK 05/05 completed PT stopped taking after the first two months. 03/14/22 Not Available Not Available Not Available rizatript an 10 mg tablet TAKE 1 TAB BY MOUTH ONCE, MAY REPEAT AT 2HR INTERVAL S. DONOT EXCEED 30 MG IN 24 HOURS OR 4 TABS/WEE K active Not Available Not Available No t Available Atrovent 42 mcg (0.06 %) nasal spray [place] 2 sprays in each nostril by intranas al route 3 times per day prn 2010 active Not Available Not Available Not Avai lable acetamino phen 300 mg-codein e 30 mg tablet 10/16 completed pt does not take this medicati on 05-14-16 KB Not Available Not Available Not Available ciproflox acin 250 mg tablet TAKE 1 TABLET BY MOUTH EVERY 12 HOURS FOR 3 DAYS. START AFTER TEIXEIRA CATHETER IS REMOVED. 03/15 completed Not Available Not Available Not Available ciproflox acin 500 mg tablet TAKE 1 TABLET BY MOUTH EVERY 12 HOURS FOR 3 DAYS. BRING TO OFFICE DAY OF PRODEDUR E. 03/15 completed Not Available Not Available Not Available tramadol 50 mg tablet TAKE 1 TABLET BY MOUTH EVERY 6 HOURS FOR 3 DAYS. BRING TO OFFICE DAY OF PRODEDUR E. 03/15 completed Not Available Not Available Not Available levothyro xine 75 mcg tablet TAKE 1 TABLET BY MOUTH EVERY DAY 2024 active Not Available Not Available Not Avai lable ketorolac 0.5 % eye drops INSTILL 1 DROP 4X DAILY TO LEFT EYE.STAR T 01/03. TAPER WEEKLY FOR 1 MONTH AFTER SURGERY DIRECTED 05/05 completed Not Available Not Available Not Available alprazola m 0.5 mg tablet Take 1 tablet 3 times a day by oral route as needed. 10/16 completed pt does not take this medicati on 05-14-16 KB Not Available Not Available Not Available amoxicill in 875 mg tablet TAKE 1 TABLET BY MOUTH TWICE A DAY DIRECTED UNTIL FINISHED START 1 DAY BEFORE SURGERY active Not Available Not Available No t Available alprazola m 0.25 mg tablet Take 1 tablet 3 times a day by oral route as needed. 10/16 completed 01/17/16 Pt unsure of dose-pt does not take this medicati on 05-14-16 KB Not Available Not Available Not Available prednisol one acetate 1 % eye drops,[employer] pension INSTILL 1 DROP 4X DAILY LEFT EYE.STAR T 11 AFTER PROCEDUR E.TAPER WEEKLY FOR 1 MONTH AFTER SURGERY 05/05 completed Not Available Not Available Not Available Compound W 17 % topical liquid APPLY 1 APPLICAT ION EVERY DAY BY TOPICAL ROUTE DIRECTED . 02/18 completed Not Available Not Available Not Available diazepam 2 mg tablet TAKE 1 TABLET BY MOUTH NEEDED ONCE A DAY. BRING TO OFFICE DAY OF PROCEDUR E. 03/15 completed Not Available Not Available Not Available rizatript an 10 mg disintegr ating tablet 05/20 completed Not Available Not Available Not Available cephalexi n 500 mg capsule 08/29 completed Not Available Not Available Not Available codeine 10 mg-guaife nesin 100 mg/5 mL Syrup Take 10 mL 4 times a day by oral route for 5 days. 06/16 completed Not Available Not Available Not Available Isopto Atropine 1 % eye drops INSTILL ONE DROP THREE TIMES DAILY IN THE RIGHT EYE START DATE 05/17/19 WATI FIVE MINUTES. INBETWEE N DIFFEREN T DROPS. 01/30 completed Not Available Not Available Not Available codeine 10 mg-guaife nesin 100 mg/5 mL oral liquid Take 10 mL every 4 hours by oral route. 2023 active Not Available Not Available Not Avai lable gabapenti n 100 mg capsule TAKE ONE CAPSULE BY MOUTH BEFORE BED 08/29 completed Not Available Not Available Not Available codeine sulfate 30 mg tablet TAKE 1 TABLET BY MOUTH EVERY 6 HOURS NEEDED 08/02 completed Not Available Not Available Not Available methylpre dnisolone 4 mg tablets in a dose pack active Not Available Not Available Not Available doxycycli ne hyclate 100 mg tablet Take 1 tablet twice a day by oral route as directed for 21 days. 01/16 completed 10/29/15 Today is last day Not Available Not Available Not Available finasteri de 5 mg tablet TAKE 1 TABLET BY MOUTH EVERY DAY 01/30 completed Not Available Not Available Not Available amoxicill in 875 mg-potass ium clavulana te 125 mg tablet TAKE 1 TABLET BY MOUTH TWICE A DAY DIRECTED UNTIL FINISHED . START 2 DAYS BEFORE SURGERY. 08/29 completed Not Available Not Available Not Available clonazepa m 0.25 mg disintegr ating tablet Place 1 tablet twice a day by translin gual route. 05/05 completed PT unsure if taking 03/14/22 Not Available Not Available Not Available moxifloxa mary 0.5 % eye drops INSTILL 1 DROP 4TIMES A DAYTO LEFT EYE.STAR T 01/03. CONTINUE FOR 1 WEEK AFTER SURGERY DIRECTED 05/05 completed Not Available Not Available Not Available ciproflox acin 0.3 %-dexamet hasone 0.1 % ear drops,andria pension INSTILL 4 DROPS INTO AFFECTED EAR(S) TWICE A DAY FOR 7 DAYS 02/01 completed Not Available Not Available Not Available tadalafil 5 mg tablet TAKE ONE TABLET BY MOUTH EVERY DAY FOR SEXUAL ACTIVITY 09/08 completed pt states he had adverse side effects 08/03/23SM Not Available Not Available Not Available chlorhexi dine gluconate 0.12 % mouthwash PLEASE SEE ATTACHED FOR DETAILED DIRECTIO NS active Not Available Not Available No t Available Calcium 500 + D 1 tab everyday 12/30/18 JI NOT SURE OF THE DOSAGE 08/29 completed Not Available Not Available Not Available Zostavax (PF) 19,400 unit/0.65 mL subcutane ous suspensio n 2007 active return to MD for aministr ation Not Available Not Available Not Available CoQ-10 100 mg capsule Take 1 capsule every day by oral route. active Not Available Not Available No t Available risedrona te 150 mg tablet TAKE 1 TABLET BY MOUTH EVERY MONTH FOR 90 DAYS. active Not Available Not Available No t Available Gavilyte- C 240 gram-22.7 2 gram-6.72 gram-5.84 gram oral solution 10/07 completed Not Available Not Available Not Available Prolensa 0.07 % eye drops instill ONE DROP ONCE daily in THE morning START ON 05/06, IN THE RIGHT EYE. WAIT FIVE MINUTES BETWEEN DIFFEREN T DROPS. 01/30 completed Not Available Not Available Not Available Flucelvax [id number] (PF) 45 mcg (15 mcg x 3)/0.5 mL IM syringe active Not Available Not Available Not Available calcium 300 mg (carb, citrate)- magnesium 150 mg-vit D3 400 unit tablet Take 2 tablets every day by oral route. active Not Available Not Available No t Available Shingrix (PF) 50 mcg/0.5 mL intramusc ular suspensio n, kit 04/12 completed Not Available Not Available Not Available Fluad 2017- 65yr up(PF)45 mcg(15 mcgx3)/0. 5 mL intramusc ular syringe TO BE ADMINIST ERED BY PHARMACI ST FOR IMMUNIZA TION 04/12 completed Not Available Not Available Not Available Lotemax SM 0.38 % eye gel drops instill ONE DROP THREE TIMES DAILY, Start DROP as directed AFTER surgical procedur e ON 05/09 IN THE RIGHT EYE. taper as directed AT post op a 01/30 completed Not Available Not Available Not Available melatonin 3 mg capsule PRN active Not Available Not Available Not Available Fluzone High-Dose Quad 2020-21 (PF) 240 mcg/0.7 mL IM syringe PHARMACY ADMINIST ERED 12/05 completed Not Available Not Available Not Available COVID-19 At-Home Test kit TEST 08/29 completed Not Available Not Available Not Available Vitals Date Recorded Body height Body mass index (BMI) Body weight Oxygen saturation Oxygen saturation in Arterial blood by Pulse oximetry Heart rate Systolic And Diastolic Provider Name and Address Organization Details Last Updated DateTime 4 177.8 cm 22.5 kg/m2 18053 g 96 % 96 % 72 /min 119/77 mm[Hg] Nora Barker MA [facility] 4 10:54:36 Date Recorded Body height Body mass index (BMI) Body weight Oxygen saturation Oxygen saturation in Arterial blood by Pulse oximetry Heart rate Systolic And Diastolic Provider Name and Address Organization Details Last Updated DateTime 4 177.8 cm 22.5 kg/m2 69054.7 g 96 % 96 % 74 /min 128/70 mm[Hg] Verónica Hear[facility] 4 10:18:25 Date Recorded Body height Body mass index (BMI) Body weight Heart rate Oxygen saturation Oxygen saturation in Arterial blood by Pulse oximetry Systolic And Diastolic Provider Name and Address Organization Details Last Updated DateTime 4 177.8 cm 23.4 kg/m2 37813.2 6 g 76 /min 97 % 97 % 142/88 mm[Hg] Verónica Hearn [facility] 4 09:17:33 Social History Question Answer Notes LastModified by Organizat ion Details LastModified Time Tobacco Smoking Status Never Smoker 05/05/22 , 08/03/23 Nora Barker MA [facility] 08/03/2023 10:51:40 Do You Have An Advance Directive? Yes - Regina [email or web address] Information not available 06/01/2009 Do You Wear A Helmet When Biking? Yes [email or web address] Information not available 03/05/2015 What Is Your Level Of Caffeine Consumption? None [email or web address] Information not available 01/31/2020 How Much Tobacco Do You Chew? None Information not available 03/05/2015 What Type Of Diet Are You Following? REGULAR [email or web address] Information not available 01/31/2020 Have There Been Any Changes To Your Family Or Social Situation? No Information not available 07/24/2021 How Many Days In The Past Year Have You Had A Heavy Drinking Consumption (4+ Female, 5+ Male)? 0 [email or web address] Information not available 10/13/2012 Are There Any Guns Present In Your Home? No Information not available 03/05/2015 Do You Use Insect Repellent Routinely? No [email or web address] Information not available 07/24/2021 Live Alone Or With Others? With Others Information n ot available 01/16/2011 Patient Has Health Care Proxy Signed And In Chart No [email or web address] Information not available 11/05/2017 CCM Consent Discussion 07/31/2021 [email or web address] Information not available 08/22/2021 Marital Status In formation not available 01/16/2011 Mosquito Repellent Used Routinely Yes Information not available 03/05/2015 What Was The Date Of Your Most Recent Tobacco Screening? 08/03/2023 05/05/22 JM, 05/08/22mh , 08/03/23SM Information not available 08/03/2023 How Many Children Do You Have? 2 Information n ot available 01/16/2011 What Is Your Relationship Status? [email or web address] Information not available 07/24/2021 Do You Use Your Seat Belt Or Car Seat Routinely? Yes Information not available 07/24/2021 Seat Belts Used Routinely Yes Information n ot available 01/16/2011 Smoke Alarm In Home Yes Information not available 03/05/2015 Do You Have Smoke And Carbon Monoxide Detectors In Your Home? Yes [email or web address] Information not available 02/18/2021 Are You Passively Exposed To Smoke? No Information not available 07/24/2021 How Much Tobacco Do You Smoke? No Information n ot available 01/16/2011 Do You Use Sunscreen Routinely? Yes Information n ot available 01/16/2011 Sex: Male Functional Status Question Answer Note LastModified by Organizat ion Details LastModified Time Do you use any illicit or recreational drugs? No [email or web address] Information not available 02/18/2021 Do you or have you ever used any other forms of tobacco or nicotine? No [email or web address] Information not available 07/31/2021 What is your level of alcohol consumption? None 05/05/22 JM, 05/08/22mh, 08/03/23SM Information not available 08/03/2023 Do you or have you ever used smokeless tobacco? Never used [email or web address] tobacco Information not available 12/06/2019 Are you currently employed? No retired Information not available 07/24/2021 Do you or have you ever used e-cigarettes or vape? Never used electronic cigarettes [email or web address] Information not available 12/06/2019 What is your exercise level? Moderate daily Information not available 07/24/2021 Mental Status None recorded. Family History Nothing Reported Notes:Ischemic none. Hyperte nsion none. Stroke father. Diabetes none. Cancer colon mother: 85. Colon polyps none. Dad 75 (CVA- smoker) Mom 90- colon CA Sister- colon CA (has ostomy) 2 boys- healthy. Grands: 3 grands- [employer] (one is trans-girl, one girl is wall-climber). Family all well. 08/21: No changes. all well. sister (colon CA)- doing OK. (+2 years from pt). Medical History Condition Response Rheumatoid Arthritis N Thyroid Disease Y Immunizations Vaccine Type Date Status Note Provider Nam e and Address Organization Details Recorded Time influenza, unspecified formulation 1 completed CARISSA Campa [facility] 02/05/2023 15:35:43 influenza, unspecified formulation 1 completed CARISSA Campa [facility] 02/05/2023 15:35:43 influenza, unspecified formulation 2 completed CARISSA Campa [facility] 02/05/2023 15:35:43 influenza, unspecified formulation 3 completed Melanie Gladu, EDITOR INDEX null, [facility] 02/05/2023 15:35:43 influenza, unspecified formulation 2 completed [facility] 15:35:43 Influenza, split virus, trivalent, preservative 1 completed Not Available [facility] 03/19/2019 02:18:14 influenza, unspecified formulation 4 completed Melanie Gladu, [facility] 02/05/2023 15:35:43 Td(adult) unspecified formulation 4 completed Melanie Gladu, [facility] 02/05/2023 15:35:43 influenza, unspecified formulation 5 completed Melanie Gladu, EDIT[facility] IN[facility] 02/05/2023 15:35:43 Influenza, split virus, trivalent, preservative 9 completed Not Available [facility] 03/19/2019 02:17:25 influenza, unspecified formulation 6 completed Melanie Gladu, [facility] 02/05/2023 15:35:43 zoster live 2 completed Not Available [facility] 03/19/2019 02:31:06 influenza, unspecified formulation 7 completed Melanie Gladu, [facility] 02/05/2023 15:35:43 influenza, unspecified formulation 8 completed Melanie Gladu, [facility] 02/05/2023 15:35:43 Influenza, split virus, trivalent, preservative 2 completed Not Available [facility] 03/19/2019 02:37:17 pneumococcal polysaccharide PPV23 6 completed Melanie Gladu, [facility] 02/05/2023 15:35:42 Td (adult), 5 Lf tetanus toxoid, preservative free, adsorbed 4 completed Not Available [facility] 03/19/2019 02:17:01 Pneumococcal conjugate PCV 13 5 completed Not Available [facility] 03/19/2019 02:25:39 Influenza, high-dose, trivalent, PF 5 completed Not Available [facility] 03/19/2019 02:19:48 Influenza, high-dose, trivalent, PF 6 completed Not Available [facility] 03/19/2019 02:27:42 Influenza, split virus, quadrivalent, preservative 4 completed Melanie Gladu, EDITOR INDEX null, [facility] 02/05/2023 15:35:42 Influenza, split virus, trivalent, PF 4 completed Melanie Gladu, [facility] 02/05/2023 15:35:43 Influenza, high-dose, trivalent, PF 7 completed Not Available [facility] 03/19/2019 02:22:04 Influenza, high-dose, trivalent, PF 8 completed Melanie Gladu, EDITOR INDEX null, [facility] 02/05/2023 15:35:43 zoster recombinant 9 completed Melanie Gladu, [facility] 02/05/2023 15:35:42 Influenza, high-dose, trivalent, PF 9 completed Melanie Gladu, [facility] 02/05/2023 15:35:43 COVID-19, mRNA, LNP-S, PF, 100 mcg/0.5mL dose or 50 mcg/0.25mL dose 1 completed [facility] 04/24/2020 12:39:40 Influenza, split virus, trivalent, preservative 0 completed Not Available [facility] 03/19/2019 02:17:47 COVID-19, mRNA, LNP-S, PF, 100 mcg/0.5mL dose or 50 mcg/0.25mL dose 1 completed Melanie Gladu, [facility] 02/05/2023 15:35:42 Influenza, split virus, quadrivalent, preservative 1 completed Melanie Gladu, EDITOR INDEX null, [facility] 02/05/2023 15:35:42 COVID-19, mRNA, LNP-S, PF, 100 mcg/0.5mL dose or 50 mcg/0.25mL dose 1 completed Melanie Gladu, EDITOR INDEX null, [facility] 02/05/2023 15:35:42 COVID-19, mRNA, LNP-S, PF, 100 mcg/0.5mL dose or 50 mcg/0.25mL dose 2 completed Melanie Gladu, EDITOR INDEX null, [facility] 02/05/2023 15:35:42 Influenza, high-dose, trivalent, PF 2 completed Melanie Gladu, EDITOR INDEX null, [facility] 02/05/2023 15:35:43 influenza, unspecified formulation 3 completed Melanie Gladu, EDITOR INDEX null, [facility] 02/05/2023 15:35:43 COVID-19, mRNA, LNP-S, PF, 50 mcg/0.5 mL 3 completed Melanie Gladu, EDITOR INDEX null, [facility] 02/05/2023 15:35:42 Past Encounters Encounter ID Performer Location Encounter Start Date Encounter Closed Date Diagnosis/Indication Diagnosis SNOMED-CT Code Diagnosis ICD10 Code Diagnosis Note [id number] Cristian Amaya MD , [facility] [place] [address] [place] [address] 10/22/2000 08:00:00 03/22/2008 02:02:29 [id number] Cristian Amaya MD , [facility] [place] [address] [place] [address] 11/23/2000 09:15:00 03/22/2008 02:02:29 [id number] Cristian Amaya MD , [facility] OFFICE [address] [place] [address] 12/30/2000 16:15:00 03/22/2008 02:02:29 [id number] [facility]U [facility] , [facility] OFFICE [address] [place] [address] 02/08/2001 15:35:00 03/22/2008 02:02:29 [id number] [facility] - [facility] [address] [place] [address] 12/17/2001 12:15:33 03/22/2008 02:02:29 [id number] Cristian Amaya MD , [facility], OFFICE [address] [place] [address] 12/17/2001 11:51:21 03/22/2008 02:02:29 [id number] [facility], [facility] [address] [place] [address] 03/18/2002 10:54:14 03/22/2008 02:02:29 [id number] [facility] - [facility] [address] [place] [address] 01/10/2003 07:38:18 01/10/2003 13:58:16 [id number] Cristian Amaya MD , [facility], OFFICE [address] [place] [address] 01/09/2003 14:13:51 01/10/2003 10:16:45 [id number] Cristian Amaya MD , [facility], OFFICE [address] [place] [address] 04/24/2003 11:04:28 04/24/2003 18:16:04 [id number] [facility] RAD[facility] Radiology , [facility] [address] [place] [address] 02/19/2004 12:06:23 02/19/2004 14:43:17 [id number] Cristian Amaya MD , [facility] OFFICE [address] [place] [id number] 02/19/2004 10:59:32 02/20/2004 09:35:27 [id number] [facility] - [address] [place] [address] 02/19/2004 12:08:55 02/19/2004 12:09:13 [id number] [facility] - [facility] [address] [place] [address] 03/04/2004 10:23:41 03/04/2004 10:24:02 [id number] Cristian Amaya MD , [facility], OFFICE [address] [place] [id number] 03/04/2004 09:17:53 03/05/2004 08:45:51 [id number] MD ELENI Schulz, [facility], OFFICE [address] [place] [address] 03/25/2004 11:58:02 03/26/2004 08:45:48 [id number] Joe Engle , [facility], [place]ICE [address] [place] [address] 06/07/2004 13:27:00 06/10/2004 09:24:37 [id number] [facility] FLU [facility] , [facility], [place] [address] [place] [address] 12/31/2004 16:27:14 12/31/2004 16:27:21 [id number] Cristian Amaya MD , [facility], [place]ICE [address] [place] [address] 03/07/2005 08:32:17 03/10/2005 08:23:04 [id number] [facility] - [facility] [place] [address] 03/04/2005 13:02:10 03/04/2005 13:02:43 [id number] Brock Rodriguez i PT Physical Therapy, [facility] [place] [address] 03/10/2005 08:27:59 03/10/2005 09:40:45 [id number] [facility] - [facility] [place] [address] 03/07/2005 09:31:51 03/07/2005 09:32:16 [id number] Brock Rodriguez i, PT Physical Therapy, [facility] [place] [address] 03/14/2005 08:09:32 03/14/2005 09:34:21 [id number] Brock Rodriguez i, PT Physical Therapy, [facility] [place] [address] 03/25/2005 07:49:28 03/25/2005 09:30:43 [id number] [facility], [facility] [place] [address] 04/01/2005 16:39:17 04/02/2005 08:40:38 [id number] Brock Rodriguez i, PT Physical Therapy, [facility] [place] [address] 04/08/2005 08:10:32 04/08/2005 09:14:33 [id number] Brock Rodriguez i, PT Physical Therapy, [facility] [address] [place] [address] 1 04/15/2005 08:15:25 04/15/2005 09:22:37 [id number] Brock Rodriguez i, PT Physical Therapy, [facility] [place] [address] 1 04/29/2005 08:06:10 04/29/2005 09:08:04 [id number] ASP, STACY MONACO MD ASP, [facility] [place] [address] 1 05/01/2005 10:44:46 05/02/2005 07:31:18 [id number] Brock Rodriguez i, PT Physical Therapy, [facility] [place] [address] 1 04/01/2005 08:14:44 04/01/2005 09:16:59 [id number] Cristian Amaya MD , [facility], OFFICE [address] [place] [address] 1 12/29/2005 08:57:17 12/30/2005 16:23:39 [id number] Nitish Palmer MD , [facility], OFFICE [address] [place] [address] 01/11/2006 10:56:19 01/11/2006 11:59:[id number] [place] [address] 1 01/19/2006 12:45:45 01/19/2006 16:47:13 [id number] [facility] LAB LAB - [address] [place] [address] 1 02/09/2006 11:05:43 02/09/2006 11:05:54 [id number] [facility] FLU CLINIC FP, [facility], OFFICE [address] [place] [address] 1 02/16/2006 11:20:00 03/22/2008 02:02:29 [id number] Kay Alvarado NP , [facility], OFFICE [address] [place] [address] 1 02/24/2006 09:47:18 02/24/2006 12:47:03 [id number] [facility] LAB LAB - [address] [place] [address] 1 03/16/2006 15:47:01 03/16/2006 16:17:04 [id number] Cristian Amaya MD , [facility], OFFICE [address] [place] [address] 1 03/24/2006 16:29:41 03/25/2006 09:25:02 [id number] [facility] LAB LAB - [facility] [address] [place] [address] 1 03/25/2006 08:11:38 03/25/2006 08:11:44 [id number] Paty Shook MD , [facility], OFFICE [address] [place] [address] 1 06/18/2006 09:28:18 06/18/2006 11:43:01 [id number] [facility], [facility] [address] [place] [address] 1 07/30/2006 10:11:57 07/30/2006 17:27:58 [id number] [facility] LAB LAB - [facility] [address] [place] [address] 1 07/30/2006 09:55:28 07/30/2006 09:55:59 [id number] Cristian Amaya MD , [facility], OFFICE [address] [place] [address] 1 10/07/2006 14:00:06 10/08/2006 10:39:37 [id number] [facility] LAB LAB - [address] [place] [address] 10/07/2006 14:26:37 10/07/2006 14:26:47 [id number] [facility] FLU CLINIC , [facility], OFFICE [address] [place] [address] 1 01/13/2007 14:42:05 03/22/2008 02:02:29 [id number] [facility] LAB LAB - [address] [place] [address] 03/24/2007 13:52:04 03/24/2007 13:52:11 [id number] Cristian Amaya MD FP, [facility], OFFICE [address] [place] [address] 1 04/05/2007 10:54:52 03/22/2008 02:02:29 [id number] [facility] LAB LAB - [facility] [address] [place] [address] 1 04/06/2007 08:09:36 04/06/2007 08:09:40 [id number] [facility] FLU CLINIC FP, [facility], OFFICE [address] [place] [address] 1 12/31/2007 14:26:46 12/31/2007 14:26:51 [id number] Cristian Amaya MD , [facility], [place]ICE [address] [place] [address] 1 04/04/2008 14:12:11 04/05/2008 13:58:16 [id number] Cristian Amaya MD , [facility], OFFICE [address] [place] [address] 1 06/16/2008 14:13:37 06/19/2008 09:59:49 [id number] [facility] ULTRASOUND [employer] , [facility] [address] [place] [address] 1 06/21/2008 08:57:54 06/22/2008 14:37:36 [id number] Domenico Ramírez PA-C , [facility], OFFICE [address] [place] [address] 1 08/10/2008 13:43:51 08/11/2008 09:52:50 [id number] Cristian Amaya MD , [facility], OFFICE [address] [place] [address] 1 09/12/2008 15:14:20 09/18/2008 14:56:23 [id number] [facility] RADIOLOGY [facility] [employer]iology , [address] [place] [address] 1 09/12/2008 15:42:44 09/20/2008 14:21:13 [id number] Dena Russell, PT Physical Therapy, [address] [place] [address] 1 09/14/2008 16:56:25 09/15/2008 09:53:16 [id number] Dena Russell PT Physical Therapy, [address] [place] [address] 1 09/19/2008 08:59:33 09/20/2008 10:51:50 [id number] Dena Russell PT Physical Therapy, [address] [place] [address] 1 09/26/2008 11:28:44 09/27/2008 07:44:04 [id number] Dena Russell PT Physical Therapy, [address] [place] [address] 1 10/02/2008 10:26:51 10/06/2008 09:29:55 [id number] Dena Russell PT Physical Therapy, [address] [place] [address] 1 10/11/2008 08:01:52 10/12/2008 11:59:10 [id number] [facility] FLU CLINIC X , [facility], OFF[address] [place] [address] 1 11/29/2008 10:01:13 11/30/2008 08:57:47 [id number] [facility] LAB LAB - [facility] [address] [place] [address] 1 04/04/2008 15:35:11 04/04/2008 15:35:44 [id number] [facility] LAB LAB - [facility] [address] [place] [address] 1 06/21/2008 08:39:20 06/21/2008 08:39:23 [id number] Domenico Ramírez PA-C , [facility], OFFICE [address] [place] [address] 1 02/27/2009 15:28:57 02/27/2009 17:35:08 [id number] [facility] RADIOLOGY Technolog[employer] Radiology , [facility] [address] [place] [address] 02/27/2009 15:50:26 03/06/2009 09:29:53 [id number] [facility] RADIOLOGY Techn[facility] Radiology , [facility] [address] [place] [address] 1 02/27/2009 15:50:48 03/06/2009 09:30:21 [id number] MD ELENI Schulz, [facility], [address]ICE [address] [place] [address] 1 04/02/2009 14:40:26 04/03/2009 09:53:35 [id number] MD ELENI Schulz, [facility], OFFICE [address] [place] [address] 1 06/01/2009 09:33:39 06/01/2009 13:47:09 [id number] MD ELENI Schulz, [facility], OFFICE [address] [place] [address] 1 10/16/2009 10:13:37 10/16/2009 14:03:29 [id number] Dena Russell, PT Physical Therapy, [facility] [address] [place] [address] 1 10/19/2009 10:00:59 10/22/2009 13:30:53 [id number] Dena Russell, PT Physical Therapy, [facility] [address] [place] [address] 1 10/24/2009 09:01:20 10/25/2009 13:16:03 [id number] Dena Russell, PT Physical Therapy, [facility] [address] [place] [address] 1 10/31/2009 09:03:46 11/01/2009 13:57:52 [id number] Dena Russell, PT Physical Therapy, [facility] [address] [place] [address] 1 11/21/2009 09:01:05 11/21/2009 16:46:22 [id number] [facility] FLU CLINIC FP, [facility], [place]ICE [address] [place] [address] 1 11/29/2009 14:51:46 11/30/2009 10:16:15 [id number] Domenico Ramírez PA-C FP, [facility], OFFICE [address] [place] [address] 1 04/08/2010 11:46:22 04/08/2010 13:46:34 [id number] [facility] RADIOLOGY Technologi st Radiology , [facility] [address] [place], [place] [address] 04/08/2010 12:37:39 04/09/2010 10:56:59 [id number] Cristian Amaya MD FP, [facility], OFFICE [address] [place] [address] 1 04/23/2010 13:28:30 04/23/2010 13:59:25 [id number] Cristian Amaya MD FP, [facility], OFFICE [address] [place] [address] 1 07/22/2010 08:28:25 07/23/2010 08:12:38 [id number] [facility] FLU CLINIC FP, [facility], OFFICE [address] [place] [address] 1 12/23/2010 09:09:00 12/23/2010 12:46:20 [id number] FP TREATMENT NURSE [facility] FP, [facility], OFFICE [address] [place] [address] 1 05/14/2011 11:33:43 05/15/2011 11:16:02 [id number] Cristian Amaya MD FP, [facility], OFFICE [address] [place] [address] 1 10/09/2011 09:46:00 10/09/2011 10:33:46 [id number] [facility] FLU CLINIC FP, [facility], OFFICE [address] [place] [address] 1 11/11/2011 10:39:55 11/11/2011 10:56:35 [id number] Cristian Amaya MD , [facility], OFFICE [address] [place] [address] 1 10/13/2012 08:48:01 10/13/2012 09:30:32 Adult health examination [id number] see Risk Assessment and Lifestyle Change Counseling section above Counseling [id number] Hypothyroidism 56052864 Benign abad plasm of colon 00124732 Migraine 95507607 Family his tory of malignant neoplasm of gastrointestinal tract 385476905 [id number] Cristian Amaya MD , [facility], OFFICE [address] [place] [address] 1 10/21/2013 16:11:52 10/21/2013 17:09:11 Adult health examination 162455629 see Risk Assessment and Lifestyle Change Counseling section above Counseling 082863127 Administra tion of diphtheria and tetanus vaccine 36593155 Acquired hypothyroidism 708329309 Family his tory of malignant neoplasm of gastrointestinal tract 046749043 Benign abad plasm of colon 84858631 [id number] Cristian Amaya MD , [facility], OFFICE [address] [place] [address] 1 12/12/2013 14:46:51 12/12/2013 15:32:03 Otalgia 47980308 [id number] Dena Parekh MD , [facility], OFFICE [address] [place] [address] 1 10/12/2014 13:44:12 10/13/2014 09:04:46 Trigeminal neuralgia 82847066 Yesterday, better today, most likely triggered by keeping mouth open for 45 min during dental appointmen t; no ear infx P. Reassured, follow up as needed [id number] Cristian Amaya MD , [facility], OFFICE [address] [place] [address] 1 11/09/2014 08:43:13 11/09/2014 09:38:05 Adult health examination 506768913 see Risk Assessment and Lifestyle Change Counseling section above Counseling 379096107 Migraine 18501657 Trigeminal neuralgia 97946939 Acquired hypothyroidism 793073774 Inflammati on of sacroiliac joint 18656515 Active or passive immunization 545916174 Influenza vaccine needed 2002475427 [id number] Cristian Amaya MD , [facility], OFFICE [address] [place] [address] 1 03/05/2015 15:08:50 03/05/2015 15:39:00 Acute upper respiratory infection 32645702 J06.9 Though likely viral. Will tx as his is treated. [id number] Genaro Hardy MD , [facility], OFFICE [address] [place] [address] 1 03/28/2015 10:12:08 03/29/2015 10:40:34 Acute sinusitis 76730657 J01.90 adds he never took azithromyc in in light of considerat ion of occluded festering sinus abscess will treat with vantin [id number] Cristian Amaya MD , [facility], OFFICE [address] [place] [address] 1 06/15/2015 14:01:24 06/15/2015 14:38:23 Palpitations 19018240 R00.2 Screening procedure 2012 5006 Z13.9 [id number] Diane HarmonOJoshua [facility], OFFICE [address] [place] [address] DR [place] [address] 1 10/08/2015 15:49:49 10/08/2015 16:59:56 Insect bite, nonvenomous, of upper arm 113986725 S40.861A Anxiety 76227290 F41.9 Otalgia 07616789 H92.01 [id number] Diane Diop D.O. , [facility], OFFICE [address] [place] [address] 1 10/11/2015 07:59:50 10/11/2015 08:43:13 Insect bite, nonvenomous, of upper arm 360170988 S40.861A Otalgia 39203133 H92.01 Anxiety 69243294 F41.9 [id number] Cristian Amaya MD , [facility], OFFICE [address] [place] [address] 1 10/29/2015 08:30:29 10/29/2015 09:57:38 Lyme disease 66631752 A69.20 [id number] Diane Diop D.O. , [facility], OFFICE [address] [place] [address] 1 01/10/2016 10:09:10 01/11/2016 09:15:22 Active or passive immunization 329839075 Z23 [id number] Cristian Amaya MD , [facility], OFFICE [address] [place] [address] 1 01/17/2016 14:14:27 01/18/2016 13:08:30 Adult health examination 408658675 Z00.00 see Risk Assessment and Lifestyle Change Counseling section above Counseling 059030298 Z71 .9 Acquired hypothyroidism 919494337 E03.9 Benign abad plasm of colon 18581090 D12.6 Family his tory of malignant neoplasm of gastrointestinal tract 956021243 Z80.0 [id number] Genaro Hardy MD , [facility], OFFICE [address] [place] [address] 1 05/14/2016 13:46:11 05/14/2016 14:35:05 Acute sinusitis 48822785 J01.90 Lingering Sx. Will treat with abx as below; can take with food. Edu pt to finish entire course even if you feel better and take probiotic supplement while on abx. Continue with supportive care extra rest/sleep , semi-uprig ht sleeping position, humidifier /hot steam shower, warm compress, neti pot, and ibuprofen as needed. Return for fever > 101 x3 days or failure to improve after 2 weeks. Reassured pt this does not appear to be Lyme. No tick exposure, rash. Symptoms consistent with sinus infection rather than Lyme. [id number] Cristian Amaya MD , [facility], OFFICE [address] [place] [address] 1 10/16/2016 15:14:04 10/16/2016 15:43:04 Left inguinal hernia 005898823 K40.90 [id number] Bhumika Flores MD , [facility], OFFICE [address] [place] [address] 1 12/10/2016 10:55:36 12/10/2016 11:32:54 Active or passive immunization 116805931 Z23 [id number] Cristian Amaya MD , [facility], OFFICE [address] [place] [address] 1 05/14/2017 14:04:30 05/14/2017 15:12:32 Adult health examination 276987435 Z00.00 see Risk Assessment and Lifestyle Change Counseling section above Counseling 094033473 Z71 .9 Depression screening 171 369208 Z13.89 depression screening tool administer ed, entered into emr, scored and discussed, time greater than 7.5 minutes Active or passive immunization 944780420 Z23 Acquired hypothyroidism 255053621 E03.9 Hearing loss 67610102 H9 0.0 Benign abad plasm of colon 10988114 D12.6 Family his tory of malignant neoplasm of gastrointestinal tract 988893593 Z80.0 Skin lesion 75577166 L98 .9 [id number] MD ELENI Nelson, [facility], OFFICE [address] [place] [address] 1 04/12/2018 13:39:49 04/12/2018 17:56:39 Cough 91292228 R05 nasal congestion perhaps from swimming area.reass urrance provided [id number] Cristian Amaya MD , [facility], OFFICE [address] [place] [address] 1 05/20/2018 10:58:21 05/20/2018 11:46:22 Acquired hypothyroidism 157336274 E03.9 Adult heal th examination 150893068 Z00.00 see Risk Assessment and Lifestyle Change Counseling section above Migraine 82098786 G43.90 9 Benign abad plasm of colon 61973519 D12.6 Benign pro static hyperplasia with outflow obstruction 645046550 N40.1 [id number] Cristian Amaya MD , [facility], OFFICE [address] [place] [address] 1 06/29/2018 10:08:43 06/29/2018 10:37:18 Minimal cognitive impairment 568856042 G31.84 [id number] MD ELENI Schulz, [facility], OFFICE [address] [place] [address] 1 12/30/2018 08:16:11 12/30/2018 08:36:36 Minimal cognitive impairment 729922697 G31.84 Acquired hypothyroidism 528742141 E03.9 [id number] MD ELENI Nelson, [facility], OFFICE [address] [place] [address] 1 03/15/2019 11:56:48 03/15/2019 14:24:20 Hearing loss 18730116 H91.93 despite getting routine maintenanc e with [place], he finds the hearing aid inadequate . last seen 20o09 [id number] MD ELENI Nelson, [facility], OFFICE [address] [place] [address] 1 04/12/2019 14:29:58 04/12/2019 15:01:52 Minimal cognitive impairment 868296296 G31.84 short term loss by testingi his only deficit Acquired hypothyroidism 979159023 E03.9 levothyrox ine 75tsh ordered every month Benign pro static hyperplasia with outflow obstruction 022892443 N40.1 improved s/p second [id number], 01/2019 laser TURP with Aex Mike, went beautifull y Cluster headache 2275139 09 G44.009 oconnellwi ll have sleep study soon Preoperati ve cardiovascular examination 558272289 Z01.810 No contraindi cations to planned cataract may 2019 with Frangie, Ian Sensorineu ral hearing loss of bilateral ears 600792862 H90.3 he is trialing Aids [id number] Jane Shobiancatari . , [facility], OFFICE [address] [place] [address] 1 12/06/2019 13:30:45 12/09/2019 09:24:44 Suspected COVID-19 494417887 Z03.818 Patient with headache, fatigue and fever and chills that started yesterday. Likely a viral syndrome, rule out coronaviru s. We will refer him to testing at [facility] per his request. He will rest, drink plenty of fluids and take Tylenol as needed. Call with any concerns. [id number] Genaro Hardy MD , [facility], OFFICE [address] [place] [address] 1 01/31/2020 11:09:51 01/31/2020 16:13:36 Adult health examination 665724669 Z00.00 Counseling 552321516 Z71 .9 including cardiovasc ular risk reduction counseling Depression screening 171 124817 Z13.89 depression screening tool administer ed, entered into emr, scored and discussed, time greater than 7.5 minutes Screening for alcohol abuse 788936631 Z13.39 Minimal co gnitive impairment 128806019 G31.84 seen Brian Bhatt 2018 and 2019, stable. . short term loss by testing it is his his only deficit Acquired hypothyroidism 809673152 E03.9 levothyrox ine 75tsh ordered standing every April Benign pro static hyperplasia with outflow obstruction 143749854 N40.1 improved s/p second [id number], 01/2019 laser TURP with Doug Mike, went beautifull yoff finasterid epost op he urinates 2 hrs daytime, 3 at night Cluster headache 4217530 09 G44.009 oconnellsl eep study AHI of ONE 04/2019Riza triptan 10 maxalt usually works Sensorineu ral hearing loss of bilateral ears 405389662 H90.3 he is trialing Aids Osteoporosis 23724165 M8 1.0 we will need to order dexa to confirm Screening for disorder 977323697 Z13.9 repeat carotid [place] [id number] Genaro Hardy MD , [facility], OFFICE [address] [place], [place] [address] 06/05/2020 13:44:38 06/05/2020 14:11:14 Foot callus 558531159 L84 base second met left foot Basal cell carcinoma of skin 674811608 C44.91 BCCA left burrell resected [place] 08/10/2017 orig path shows invasion to margins wound is not fully healed, bleeds at times needs revision [id number] Melissa Ramirez DPM Podiatry, [address] [place] [address] 06/07/2020 14:13:16 06/12/2020 08:04:24 Verruca plantaris 48790556 B07.0 Destructio n of plantar wart to right foot done today using liquid nitrogen after aseptic debridemen t of lesion. rx sent for topical patch to be applied at home. Instructed to use pumice stone to smooth skin prior to applicatio n of patch. RTC 4wks. Foot pain 55051154 M79.6 72 [id number] Melissa Ramirez DPM Podiatry, [address] [place] [address] 1 08/09/2020 09:02:21 08/09/2020 13:49:39 Verruca plantaris 48006131 B07.0 Destructio n of plantar wart to right foot done today using liquid nitrogen after aseptic debridemen t of lesion. rx sent for topical patch to be applied at home. Instructed to use pumice stone to smooth skin prior to applicatio n of patch. RTC 4wks. I spent >15 mins face to face with patient, more 50% spent in counseling and coordinati on of care. Foot pain 05493684 M79.6 72 [id number] Pedro Pablo Grimm MD Endocrino logy, [address] [place] [address] 1 08/29/2020 16:25:17 08/30/2020 07:26:01 Hypothyroidism 18260180 E03.9 2.61 (06/20); was 2.06 (09/18)Seem s to be doing well on 75mcg generic Fatigue 97992612 R53.83 Check labs- CBC is an update but will see others as well. Osteopenia 369378080 M85 .80 Reason for referral: BMD:L2-L3= +2.4 (04/22)Righ t femoral neck= -2.1 (04/22) FRAX= 8.3% (major) and 3.5% (hip). Explained that calcium/vi tamin D are necessary but not sufficient to prevent fx. Based on FRAX, could consider medication s.Handout of medication s reviewed and given to patient.Mo stly comes down to bisphospho nates or prolia. Can for secondary causes and urine NTx. Want to check CMP to see if ALK PHOS up (asymmetry in RLE vs. LLE)If elevated, would suggest plain films. [id number] Melissa Ramirez DPM Podiatry, [facility] [address] [place] [address] 10/30/2020 08:38:03 10/30/2020 09:51:30 Verruca plantaris 05875954 B07.0 Destructio n of plantar wart to right foot done today using liquid nitrogen after aseptic debridemen t of lesion. rx sent for topical patch to be applied at home. Instructed to use pumice stone to smooth skin prior to applicatio n of patch. RTC 4wks. I spent >15 mins face to face with patient, more 50% spent in counseling and coordinati on of care. Foot pain 15633408 M79.6 72 [id number] MD ELENI Nelson, [facility], OFFICE [address] [place] [address] 1 10/30/2020 11:52:51 10/30/2020 12:18:39 Acute otitis externa 72200961 H60.509 inflammed EACon left, both TM's red along fold, no AFLwill treat as OE [id number] Melissa Ramirez DPM Podiatry, [facility] [address] [place] [place] [address] 12/05/2020 08:54:42 12/05/2020 11:59:52 Verruca plantaris 47906014 B07.0 Destructio n of plantar wart to right foot done today using liquid nitrogen after aseptic debridemen t of lesion. Instructed ok to discontinu e use of patch and wart has resolved. RTC prn. I spent >15 mins face to face with patient, more 50% spent in counseling and coordinati on of care. Foot pain 25553340 M79.6 72 [id number] Genaro Hardy MD , [facility], [place]ICE [address] [place] [address] 1 02/01/2021 16:12:07 02/03/2021 06:20:38 Atypical chest pain 525072509 R07.89 fri 02/01/2021 left lower anterior chest wall pain (points to 7th rib below nipple) standing lasted an hour, 2 episodes a dayoccurre d on two separate days each day 2 episodes (about)sta sarah he is a nervous person, expresses aggravatio n cardiology not available on a days notice, calling daily this weekthe area in [place] , cor reg w/o murmer lungs clearnorma l percussion over lung on that side, large gsatric bubble He accepted reassurran ce, is not life threatenin g not cardiac likely hiatal hernia or gas bubblechec k CXR to see if there is anything confirmato ryreassurr ance howeverwas the bose here, he felt comfortabl e with cxr on thursday [id number] Pedro Pablo Grimm MD Endocrino logy, [facility] [address] [place] [id number] 02/18/2021 12:47:34 02/19/2021 05:55:39 Osteopenia [id number] M85.80 BMD:L2-L3= +2.4 (04/22)Righ t femoral neck= -2.1 (04/22) FRAX= 8.3% (major) and 3.5% (hip). Explained that calcium/vi tamin D are necessary but not sufficient to prevent fx. Based on FRAX, could consider medication s.Previous ly gave patient handout of medication s reviewed and given to patient. Mostly comes down to bisphospho nates or prolia. No secondary causes and urine NTx. ALK PHOS= 68 (had asymmetry in RLE vs. LLE) 02/19: Patient doesn't recall reviewing options on papers- Requests that I make decision.W ill send him sheet. Plan for Prolia. Fatigue [id number] R53.83 Seems to be better with napping and reduce anxiety. Hypothyroidism [id number] E03.9 2.61 (06/20); was 2.06 (09/18)Seem s to be doing well on 75mcg generic [id number] Genaro Hardy MD , [facility], OFFICE [address] [place] [address] 07/24/2021 14:27:26 07/24/2021 15:14:24 Adult health examination [id number] Z00.00 well examhealth y active 81 year oldprolia and levothyrox ine Counseling [id number] Z71 .9 including cardiovasc ular risk reduction counseling Depression screening 171 073103 Z13.31 depression screening tool administer ed, entered into emr, scored and discussed, time greater than 7.5 minutes Screening for alcohol abuse 886086170 Z13.39 Atypical chest pain 1025 07741 R07.89 atypical CP , ETT neg, anxiety per cardiology , pt recognizes this Dx*thu02/01/2021 left lower anterior chest wall pain (points to 7th rib below nipple) standing lasted an hour, 2 episodes a dayoccurre d on two separate days each day 2 episodes (about)sta sarah he is a nervous person, expresses aggravatio n cardiology not available on a days notice, calling daily this weekthe area in NT , cor reg w/o murmer lungs clearnorma l percussion over lung on that side, large gsatric bubble He accepted reassurran ce, is not life threatenin g not cardiac likely hiatal hernia or gas bubblechec k CXR to see if there is anything confirmato ryreassurr ance howeverwas the bose here, he felt comfortabl e with cxr on thursday Minimal co gnitive impairment 234966011 G31.84 seen Brian Bhatt 2018 and 2019, stable. . short term loss by testing it is his his only deficit Acquired hypothyroidism 569241958 E03.9 levothyrox ine 75tsh ordered standing every April Benign pro static hyperplasia with outflow obstruction 159316122 N40.1 improved s/p second [id number], 01/2019 laser TURP with Doug Rashid, went beautifull yoff finasterid epost op he urinates 2 hrs daytime, 3 at night Cluster headache 3705661 09 G44.009 oconnellsl eep study AHI of ONE 04/2019Riza triptan 10 maxalt usually works Sensorineu ral hearing loss of bilateral ears 337493111 H90.3 wears aidsEAC's clear (06/2021) Osteoporosis 53951783 M8 1.0 we will need to order dexa to confirmTsc ore >2 prolia per cal Grimm [id number] Pedro Pablo Grimm MD Endocrino logy, [address] [address] 07/31/2021 11:12:28 08/13/2021 09:18:50 Osteopenia 403435686 M85.80 BMD:L2-L3= +2.4 (04/22)Righ t femoral neck= -2.1 (04/22) FRAX= 8.3% (major) and 3.5% (hip).Base d on FRAX, could consider medication s.Have reviewed that calcium/vi tamin D are necessary but not sufficient to prevent fx.Previou george gave patient handout of medication s reviewed and given to patient.Mo stly comes down to bisphospho nates or prolia.No secondary causes and urine NTx.Urine NTx= 20 (09/19). ALK PHOS= 68 (09/19; had asymmetry in RLE vs. LLE) 02/19: Patient doesn't recall reviewing options on papers- Requests that I make decision.W ill send him sheet. Plan for Prolia. 08/21: Still no decision about meds. He's concerned about having to stay on something (if starts Prolia) vs. planned cessation for bisphospho rayna (4-5 years) Options discussed. Could consider PO alendronat e monthly. Has had dental implants done in past. Hypothyroidism 76056367 E03.9 2.61 (06/20); was 2.06 (09/18)Seem s to be doing well on 75mcg generic [id number] Genaro Hardy MD , [facility] [place] [address] [place] [address] 08/05/2021 13:40:13 08/06/2021 08:49:50 Bilateral hearing loss 58529807 H91.93 hearing loss despite Aidsobsess ing overpossib le earwaxther e is no waxRefer ENT as reassurran ce and advice [id number] Genaro Hardy MD , [facility] [address] [place] [address] 12/20/2021 09:44:26 12/20/2021 13:25:41 Bilateral hearing loss 04401467 H91.93 hearing loss despite Aidsobsess ing overpossib le earwaxther e is no waxRefer ENT as reassurran ce and advice Atypical chest pain 1025 73845 R07.89 atypical CP , ETT neg, anxiety per cardiology , pt recognizes this Dxhe states it comes and goes when anxious, but admits he is having difficulty accepting that this is somatizati on of a lifetime of anxiety. he had been told this by a neurologis t 30 years ago working up his IVY's*thu02/01/2021 left lower anterior chest wall pain (points to 7th rib below nipple) standing lasted an hour, 2 episodes a dayoccurre d on two separate days each day 2 episodes (about)sta sarah he is a nervous person, expresses aggravatio n cardiology not available on a days notice, calling daily this weekthe area in [place] , cor reg w/o murmer lungs clearnorma l percussion over lung on that side, large gsatric bubble He accepted reassurran ce, is not life threatenin g not cardiac likely hiatal hernia or gas bubblechec k CXR to see if there is anything confirmato ryreassurr ance howeverwas the bose here, he felt comfortabl e with cxr on thursday Minimal co gnitive impairment 441023471 G31.84 seen Brian Bhatt 2018 and 2020, stable. . short term loss by testing it is his his only deficit Acquired hypothyroidism 841382842 E03.9 levothyrox ine 75tsh ordered standing every April Benign pro static hyperplasia with outflow obstruction 776537235 N40.1 improved s/p second [id number], 01/2019 laser TURP with Doug Mike, went beautifull yoff finasterid epost op he urinates 2 hrs daytime, 3 at night Cluster headache 9142046 09 G44.009 oconnellsl eep study AHI of ONE 04/2019Riza triptan 10 maxalt usually works Sensorineu ral hearing loss of bilateral ears 913422489 H90.3 wears aidsEAC's clear (06/2021) Osteoporosis 37590709 M8 1.0 we will need to order dexa to confirmTsc ore >2 prolia per endo [place] Anxiety 20530332 F41.9 chronic anxiety related lACW pains x 38 yearsnervo us anxiety at 3PMagrees to trial clonazepam 0.25 bid tx rational and se'd discussedr to 2 weeks [id number] Genaro Hardy MD , [facility] [address] [place], [place] [address] 01/03/2022 10:57:46 01/03/2022 11:21:17 Bilateral hearing loss 14209103 H91.93 hearing loss despite Aidsobsess ing overpossib le earwaxther e is no waxRefer ENT as reassurran ce and advice Atypical chest pain 1025 06714 R07.89 01/03/2022 see note abovecould this be scapulalgi a ? refer to [facility], pt agreeablep erhaps will submit to sacpular or shoulder injection atypical CP , ETT neg, anxiety per cardiology , pt recognizes this Dxhe states it comes and goes when anxious, but admits he is having difficulty accepting that this is somatizati on of a lifetime of anxiety. he had been told this by a neurologis t 30 years ago working up his IVY's*thu02/01/2021 left lower anterior chest wall pain (points to 7th rib below nipple) standing lasted an hour, 2 episodes a dayoccurre d on two separate days each day 2 episodes (about)sta sarah he is a nervous person, expresses aggravatio n cardiology not available on a days notice, calling daily this weekthe area in [place] , cor reg w/o murmer lungs clearnorma l percussion over lung on that side, large gsatric bubble He accepted reassurran ce, is not life threatenin g not cardiac likely hiatal hernia or gas bubblechec k CXR to see if there is anything confirmato ryreassurr ance howeverwas the bose here, he felt comfortabl e with cxr on thursday Minimal co gnitive impairment 881727412 G31.84 seen Brian Bhatt 2018 and 2019, stable. . short term loss by testing it is his his only deficit Acquired hypothyroidism 694955638 E03.9 levothyrox ine 75tsh ordered standing every April Benign pro static hyperplasia with outflow obstruction 466897240 N40.1 improved s/p second [id number], 01/2019 laser TURP with Doug Mike, went beautifull yoff finasterid epost op he urinates 2 hrs daytime, 3 at night Cluster headache 0918638 09 G44.009 oconnellsl eep study AHI of ONE 04/2019Riza triptan 10 maxalt usually works Sensorineu ral hearing loss of bilateral ears 532769407 H90.3 wears aidsEAC's clear (06/2021) Osteoporosis 92216311 M8 1.0 we will need to order dexa to confirmTsc ore >2 prolia per endo [place] Anxiety 25942522 F41.9 chronic anxiety related lACW pains x 38 yearsnervo us anxiety at 3PMagrees to trial clonazepam 0.25 bid tx rational and se'd discussedr to 2 weeks [id number] Pedro Pablo Grimm MD Endocrino logy, [address] [address] 03/14/2022 11:22:35 03/17/2022 13:28:55 Osteopenia 169609424 M85.80 BMD:L2-L3= +2.4 (04/22)Righ t femoral neck= -2.1 (04/22) No secondary causes. FRAX= 8.3% (major) and 3.5% (hip).Base d on FRAX, could consider medication s. Have reviewed that calcium/vi tamin D are necessary but not sufficient to prevent fx.Urine NTx= 20 (09/19).ALK PHOS= 68 (09/19; had asymmetry in RLE vs. LLE) Tried alendronat e- had side effects (rib/chest pain). Discussed options:- Continue emphasis on lifestyle, recognizin g he is at risk for fx (mostly from age)- Repeat alendronat e to see if s/e decrease over time- Switch to other med (prolia) He opts for no meds at this time. Asks about updating BMD. I suggested that if not going to take meds, is there a point to checking test. He feels he might consider alternativ es if BMD declines a lot. Suggest PCP order BMD and follow-up (since I don't think he's going to have big change). Hypothyroidism 68648885 E03.9 TSH= 4.26 (01/21); was 2.31( 08/21); was 2.61 (06/20); was 2.06 (09/18)Seem s to be doing well on 75mcg generic [id number] Kacy Dasilva PA-C , [facility] [address] [place] [address] 05/05/2022 11:46:56 05/06/2022 08:13:33 Acute upper respiratory infection 08984846 J06.9 Rapid flu negative. Encouraged to do home covid test today and call if positive to discuss further. Likely viral. Cold self care measures reviewed and encouraged (fluids, steam inhalation , adequate rest, mucinex PRN). F/U if symptoms worsen or aren't resolving. Cough 10974556 R05.9 As above. Lungs clear. [id number] Genaro Hardy MD , [facility] [address] [place] [address] 05/08/2022 09:50:40 05/08/2022 14:36:02 Acute sinusitis 33457643 J01.90 Persistent sinus congestion , low grade fever. Flu/covid have been negative. Push fluids. Nasal saline. Follow up if no improvemen t or with new/worsen ing symptoms. [id number] Genaro Hardy MD , [facility] [address] [place] [address] 08/29/2022 15:05:02 09/03/2022 10:51:06 Adult health examination 593648667 Z00.00 well examhealth y active 81 year oldprolia and levothyrox ine Depression screening 171 786505 Z13.31 depression screening tool administer ed Screening for alcohol abuse 464082841 Z13.39 Alcohol use screening tool administer ed Bilateral hearing loss 92040189 H91.93 hearing loss despite Aidsobsess ing overpossib le earwaxther e is no waxRefer ENT as reassurran ce and advice Atypical chest pain 1025 01468 R07.89 atypical CP , ETT neg, anxiety per cardiology , pt recognizes this Dxhe states it comes and goes when anxious, but admits he is having difficulty accepting that this is somatizati on of a lifetime of anxiety. he had been told this by a neurologis t 30 years ago working up his IVY's*thu02/01/2021 left lower anterior chest wall pain (points to 7th rib below nipple) standing lasted an hour, 2 episodes a dayoccurre d on two separate days each day 2 episodes (about)sta sarah he is a nervous person, expresses aggravatio n cardiology not available on a days notice, calling daily this weekthe area in [place] , cor reg w/o murmer lungs clearnorma l percussion over lung on that side, large gsatric bubble He accepted reassurran ce, is not life threatenin g not cardiac likely hiatal hernia or gas bubblechec k CXR to see if there is anything confirmato ryreassurr ance howeverwas the bose here, he felt comfortabl e with cxr on thursday 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 . short term loss by testing it is his his only deficit Acquired hypothyroidism 211124890 E03.9 levothyrox ine 75tsh ordered standing every April Benign pro static hyperplasia with outflow obstruction 817752949 N40.1 improved s/p second [id number], 01/2019 laser TURP with Doug Mike, went beautifull yoff finasterid epost op he urinates 2 hrs daytime, 3 at night Cluster headache 8717521 09 G44.009 oconnellsl eep study AHI of ONE 04/2019Riza triptan 10 maxalt usually works Sensorineu ral hearing loss of bilateral ears 480980395 H90.3 wears aidsEAC's clear (06/2021) Osteoporosis 40579274 M8 1.0 we will need to order dexa to confirmTsc ore >2 prolia per endo [place] Anxiety 61537202 F41.9 chronic anxiety related LACW pains x 38 yearsnervo us anxiety at 3PM*agrees to trial clonazepam 0.25 bid tx rational and se'd discussedr to 2 weeks Counseling 524058994 Z71 .9 including cardiovasc ular risk reduction counseling [id number] Genaro Hardy MD , [facility] [address] [place] [address] 12/02/2022 10:29:04 12/02/2022 17:14:10 Right inguinal hernia 441605279 K40.90 palpable walnut side ventral protrusion just above the inguinal ligament-a direct Right inguinal herniahe wishes to have surgery with Dr Greenberg who had repaired the opposite Left side for him in 2018 Acquired hypothyroidism 329611204 E03.9 levothyrox ine 75tsh ordered standing every April [id number] Genaro Hardy MD , [facility] [address] [place] [address] 12/23/2022 10:03:31 12/23/2022 16:43:00 Pre-surgery evaluation 688096851 Z01.818 no contraindi cations to planned proceedure IOL with Dr Sosa Right inguinal hernia 23 4053833 K40.90 palpable walnut side ventral protrusion just above the inguinal ligament-a direct Right inguinal herniahe wishes to have surgery with Dr Greenberg who had repaired the opposite Left side for him in 2018 Acquired hypothyroidism 593725023 E03.9 levothyrox ine 75tsh ordered standing every April Depression screening 171 592130 Z13.31 depression screening tool administer ed Screening for alcohol abuse 514447623 Z13.39 Alcohol use screening tool administer ed Bilateral hearing loss 43946105 H91.93 hearing loss despite Aidsobsess ing overpossib le earwaxther e is no waxRefer ENT as reassurran ce and advice Atypical chest pain 1025 11049 R07.89 atypical CP , ETT neg, anxiety per cardiology , pt recognizes this Dxhe states it comes and goes when anxious, but admits he is having difficulty accepting that this is somatizati on of a lifetime of anxiety. he had been told this by a neurologis t 30 years ago working up his IVY's*thu02/01/2021 left lower anterior chest wall pain (points to 7th rib below nipple) standing lasted an hour, 2 episodes a dayoccurre d on two separate days each day 2 episodes (about)sta sarah he is a nervous person, expresses aggravatio n cardiology not available on a days notice, calling daily this weekthe area in [place] , cor reg w/o murmer lungs clearnorma l percussion over lung on that side, large gsatric bubble He accepted reassurran ce, is not life threatenin g not cardiac likely hiatal hernia or gas bubblechec k CXR to see if there is anything confirmato ryreassurr ance howeverwas the bose here, he felt comfortabl e with cxr on thursday Minimal co gnitive impairment 595486383 G31.84 seen Brian Bhatt 2018 and 2019, stable. . short term loss by testing it is his his only deficit Benign pro static hyperplasia with outflow obstruction 384074469 N40.1 improved s/p second [id number], 01/2019 laser TURP with Doug Mike, went beautifull esvin youngasterid epost op he urinates 2 hrs daytime, 3 at night Cluster headache 9258132 09 G44.009 oconnellsl eep study AHI of ONE 04/2019Riza triptan 10 maxalt usually works Sensorineu ral hearing loss of bilateral ears 962869349 H90.3 wears aidsEAC's clear (06/2021) Osteoporosis 12648991 M8 1.0 we will need to order dexa to confirmTsc ore >2 prolia per endo [place] Anxiety 13585474 F41.9 chronic anxiety related LACW pains x 38 yearsnervo us anxiety at 3PM*agrees to trial clonazepam 0.25 bid tx rational and se'd discussedr to 2 weeks Counseling 698870986 Z71 .9 including cardiovasc ular risk reduction counseling [id number] Bhumika Flores MD FP, [facility] [address] [place] [address] 05/06/2023 14:42:12 05/06/2023 17:19:42 Upper respiratory infection 62707295 J06.9 Patient presents with symptoms consistent with viral infection. No evidence of pneumonia on exam. Discussed supportive care: pushing fluids, rest, nasal saline and Mucinex as needed. Codeine cough syrup sent. Encouraged to follow up if symptoms persist for more then 10 days or if they are worsening. Discussed natural course of viral illnesses and lack of evidence for treating with antibiotic s. Cough 78104770 R05.9 Anterior epistaxis 96878 4002 R04.0 Pt with anterior epistaxis intermitte ntly x 1 week. Physical exam with signs of recent bleed at R Kesselbach plexus. The area was cauterized and pt tolerated procedure well. FU if bleeding reoccurs. Benign pro static hyperplasia with outflow obstruction 553953246 N40.1 Not tolerating new rx of tadalafil 5mg daily with persistent rhinorrhea and epistaxis. Ok to d/c and FU with urology. [id number] Husam Fair MD , [facility] [address] [place] [address] 08/03/2023 10:29:36 08/03/2023 11:45:07 Cardiac arrhythmia 070978996 I49.9 Near syncope 654746204 R 55 [id number] Genaro Hardy MD , [facility] [address] [place] [address] 09/09/2023 09:58:39 09/14/2023 13:26:49 Adult health examination 618737233 Z00.00 well examhealth y active 81 year oldprolia and levothyrox ine Depression screening 171 593799 Z13.31 depression screening tool administer ed Screening for alcohol abuse 683557862 Z13.39 Alcohol use screening tool administer ed Right inguinal hernia 23 9100677 K40.90 palpable walnut side ventral protrusion just above the inguinal ligament-a direct Right inguinal herniahe wishes to have surgery with Dr Greenberg who had repaired the opposite Left side for him in 2018 Acquired hypothyroidism 759465034 E03.9 levothyrox ine 75tsh ordered standing every April Bilateral hearing loss 94924350 H91.93 hearing loss despite Aidsobsess ing overpossib le earwaxther e is no waxRefer ENT as reassurran ce and advice Atypical chest pain 1025 14287 R07.89 atypical CP , ETT neg, anxiety per cardiology , pt recognizes this Dxhe states it comes and goes when anxious, but admits he is having difficulty accepting that this is somatizati on of a lifetime of anxiety. he had been told this by a neurologis t 30 years ago working up his IVY's*thu02/01/2021 left lower anterior chest wall pain (points to 7th rib below nipple) standing lasted an hour, 2 episodes a dayoccurre d on two separate days each day 2 episodes (about)sta sarah he is a nervous person, expresses aggravatio n cardiology not available on a days notice, calling daily this weekthe area in [place] , cor reg w/o murmer lungs clearnorma l percussion over lung on that side, large gsatric bubble He accepted reassurran ce, is not life threatenin g not cardiac likely hiatal hernia or gas bubblechec k CXR to see if there is anything confirmato ryreassurr ance howeverwas the bose here, he felt comfortabl e with cxr on thursday Minimal co gnitive impairment 152777706 G31.84 seen Brian Bhatt 2018 and 2019, stable. . short term loss by testing it is his his only deficit Benign pro static hyperplasia with outflow obstruction 690527671 N40.1 improved s/p second [id number], 01/2019 laser TURP with Doug Mike, went beautifull yoff finasterid epost op he urinates 2 hrs daytime, 3 at night Cluster headache 9256003 09 G44.009 weekly maxalt successful *troy collins study AHI of ONE 04/2019Riza triptan 10 maxalt usually works Sensorineu ral hearing loss of bilateral ears 281066146 H90.3 background noise obscures hearingaid s from [place] 6k*wears aidsEAC's clear (06/2021) Osteoporosis 18996588 M8 1.0 we will need to order dexa to confirmTsc ore >2 prolia per endo [place] Anxiety 25860810 F41.9 chronic anxiety related LACW pains x 38 yearsnervo us anxiety at 3PM*agrees to trial clonazepam 0.25 bid tx rational and se'd discussedr to 2 weeks Counseling 664470310 Z71 .9 including cardiovasc ular risk reduction counseling Otalgia of right ear 657 9165228 H92.01 unusual symptom he feels , and may wel be relayted to dental extraction ssevere knife like pain upon extending his neck/act of sitting uprightmay last an hourdr abbe slater [facility] Screening for malignant neoplasm of prostate 921940105 Z12.5 dr mike stable at 4.88 Screening for malignant neoplasm of colon 141680702 Z12.11 aged oiut [id number] Genaro Hardy MD , [facility] [address] [facility] [place] [address] 02/29/2024 09:05:13 02/29/2024 10:04:41 Low back pain 895615238 M54.50 5 says ago exac of mild chromnic LBPworse bending over at waistis left paralumbar where the column is tender and swolleneas es with walking appears to be muscular strainwill image and bloods to be sure [id number] TU FIELD, PT, DPT Physical Therapy, [address] [place] [address] 03/17/2024 10:30:52 03/17/2024 13:00:11 Low back pain 747019585 M54.59 [id number] TU FIELD PT, DPT Physical Therapy, [address] [place] [address] 03/22/2024 11:26:20 03/22/2024 12:35:46 Low back pain 349103140 M54.59 Health Concerns Section Related Observation LastModified by Organization Detai ls LastModified Time None Recorded Concern Status LastModified by Organization Details LastModified Time None Recorded Advance Directives Directive Y: - Regina Andrade Payers Encounter Date Sequence Insurance Name Policy Number Policy Leon Covered Member ID Leon Member ID Guarantor Name 08/03/2023 1 [employer] (MEDICARE REPLACEMENT/A DVANTAGE - PPO) [id number] Abel Andrade [id number] Abel Andrade 09/09/2023 1 [facility] (MEDICARE REPLACEMENT/A DVANTAGE - PPO) [id number] Abel Andrade [id number] Abel Andrade 02/29/2024 1 [employer] (MEDICARE REPLACEMENT/A DVANTAGE - PPO) [id number] Abel Andrade [id number] Abel Andrade 03/17/2024 1 [facility] (MEDICARE REPLACEMENT/A DVANTAGE - PPO) [id number] Abel Andrade [id number] Abel Andrade 03/22/2024 1 [facility] (MEDICARE REPLACEMENT/A DVANTAGE - PPO) [id number] Abel Andrade [id number] Abel Andrade Notes Date Note Type Note Provider Name and Address Organization Details Recorded Time 09/09/2023 text/html Risk Assessment and Lifestyle Change Counseling (Medicare)Reported bypatient.Safety Risk Assessment:Has grab bars in bathroom; Has rails on steps; No falls; No evidence of abuse/neglect Functional Status:Patient has trouble hearing the television or radio when others do not.;Patient has to strain or struggle to hear/understand conversations.; Patient does not need help with preparing meals, transportation, shopping, taking medicine, managing finances, or other activities of daily living.;Patient has visual loss that interfers with daily activities; Does not live alone; Patient was not unsteady and did not take longer than 30 seconds during the timed get up and go test.; Patient reports no falls in the past 6 months. Genaro Hardy MD [address] [place] [address], [id number] [facility] [place]11[place]23 18:24:23 03/17/2024 text/html PT Initial Eval*Reported bypatient.Prior Studies:x ray (IMPRESSION: 1. 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 His pain has been improving gradually. His pain is worst when he is sitting. His pain is better when he is up and moving. Denies radiation into his hips or thigh. Bending and lifting are painful. His pain started after doing some exercise and he had intense pain. [facility] [employer] He walks 30 mins every day. He does an exercise routine every morning. He is eager to get back to cross country skiing. Daily exercise routine include - rocking into kris pose, with SB bias, supine trunk rotations with DKTC, SLRs, SL bridges Functional Limitations: bending/lifting, full participation in recreational activities Stated Goals: return to OF TU FIELD, PT, DPT [address] [place] [address], [phone] [facility] [place]17[place] 12:44:01 03/22/2024 text/html PT Initial Eval*Reported bypatient.Prior Studies:x ray (IMPRESSION: 1. 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 He went on two hikes without issue. His back is feeling good. Pt referred to PT by PCP regarding L sided low back pain. His pain has been improving gradually. His pain is worst when he is sitting. His pain is better when he is up and moving. Denies radiation into his hips or thigh. Bending and lifting are painful. His pain started after doing some exercise and he had intense pain. He does exercise classes at the [employer]. He walks 30 mins every day. He does an exercise routine every morning. He is eager to get back to cross country skiing. Daily exercise routine include - rocking into kris pose, with SB bias, supine trunk rotations with DKTC, SLRs, SL bridges Functional Limitations: bending/lifting, full participation in recreational activities Stated Goals: return to [employer], PT, DPT [address] [place] [address], [id number] [facility] [place] 12:30:11
== END 2024-07-26 09:57 | disposition home or self-care (01) ==
LOC: HO.HUSH 09:11
PROVIDERS: PCP Internal Medicine; Visit Provider Urology
DX: N40.1 Benign prostatic hyperplasia with lower urinary tract symptoms (principal); R35.1 Nocturia; N32.89 Other specified disorders of bladder
CPT/HCPCS: 99214

== ENCOUNTER → 2024-07-26 09:10 | Outpatient (BNVA) | payer MEDICARE, SELFPAY | PROVIDERS: PCP Internal Medicine; Visit Provider Urology | DX: N40.1 Benign prostatic hyperplasia with lower urinary tract symptoms (principal); R35.1 Nocturia; N32.89 Other specified disorders of bladder | CPT/HCPCS: 51798; 99212 ==